=== PATIENT | male | born 1945 | race Caucasian/White ===

== ENCOUNTER → 2017-10-03 13:56 | Outpatient (CLI) | payer MEDICARE, OTHER, SELFPAY ==
[2017-10-03 14:09] LABS: Add Manual Diff / Slide Review NO; Basophils Percent Auto 0.5 % (0-2); Hematocrit 41.3 % (41-53); Hemoglobin 14.6 g/dL (13.5-17.5); Lymphocytes Percent Auto 19.7 % (25-40); Mean Corpuscular HGB Conc 35.4 % (30-36); Mean Corpuscular Hemoglobin 34.5 PG (26-34); Mean Corpuscular Volume 97.5 fL (80-100); Monocytes Percent Auto 2.7 % (3-14); Neutrophils Absolute Auto 7900 /uL (3000-5900); Neutrophils Percent Auto 77.1 % (50-75); Platelet Count 247 X10^3/uL (150-400); Red Blood Cell Count 4.23 X10^6/uL (4.5-5.9); Red Cell Distribution Width 13.9 % (11.6-14.8); White Blood Cell Count 10.3 X10^3/uL (4.5-11.0)
== END ==
PROVIDERS: Family Provider Family Medicine; PCP Family Medicine; Visit Provider Internal Medicine Hematology & Oncology
DX: D64.9 Anemia, unspecified (principal)
CPT/HCPCS: 36415; 85025

== ENCOUNTER → 2017-10-31 08:51 | Outpatient (CLI) | payer MEDICARE, OTHER, SELFPAY ==
[2017-10-31 09:08] LABS: Add Manual Diff / Slide Review NO; Basophils Percent Auto 1.4 % (0-2); Eosinophils Percent Auto 2.6 % (2-4); Hematocrit 46.5 % (41-53); Hemoglobin 16.4 g/dL (13.5-17.5); Lymphocytes Percent Auto 36.3 % (25-40); Mean Corpuscular HGB Conc 35.2 % (30-36); Mean Corpuscular Hemoglobin 33.6 PG (26-34); Mean Corpuscular Volume 95.6 fL (80-100); Monocytes Percent Auto 5.6 % (3-14); Neutrophils Absolute Auto 4900 /uL (3000-5900); Neutrophils Percent Auto 54.1 % (50-75); Platelet Count 255 X10^3/uL (150-400); Red Blood Cell Count 4.87 X10^6/uL (4.5-5.9); White Blood Cell Count 9.1 X10^3/uL (4.5-11.0)
== END ==
PROVIDERS: Family Provider Family Medicine; PCP Family Medicine; Visit Provider Nurse Practitioner Gerontology
DX: D59.1 Other autoimmune hemolytic anemias (principal)
CPT/HCPCS: 36415; 85025

== ENCOUNTER 2017-11-04 13:27 | Emergency (ER) | payer MEDICARE, OTHER, SELFPAY ==
[2017-11-04 13:42] VITALS: BP 147/70; PULSE 92; RESP 15; TEMP 36.8; O2SAT 92; BMI 35.4
--- NOTE | 2017-11-04 13:45 | ED_ITS ---
HPI - Wound/Laceration General Chief Complaint: Wound/Laceration Stated Complaint: SLICED RIGHT HAND OPEN Time Seen by Provider: 11/04/17 13:43 Source: patient Mode of arrival: ambulatory Limitations: no limitations History of Present Illness HPI narrative: 72-year-old male with chief complaint of superficial laceration to right thenar eminence. Patient was using an ax which slipped and cut him on his hand. He has full range of motion and denies numbness, tingling or weakness. His tetanus will need to be updated. He denies other injury Onset (ago): minute(s) Extremity Location: Right: hand Place: home Patient tetanus UTD: No Context: accidental Associated symptoms: none Related Data Home Medications Medication Instructions Recorded Confirmed cholecalciferol (vitamin D3) 2,000 unit PO QDAY #0 06/14/17 09/05/17 [Vitamin D3] colchicine 2 tab PO QAM #0 06/14/17 09/05/17 omeprazole 20 mg PO QDAY #0 07/11/17 09/05/17 folic acid 0.4 mg PO QDAY #0 07/13/17 09/05/17 folic acid 1 mg PO DAILY 07/31/17 07/31/17 prednisone 20 mg PO DAILY 07/31/17 10/16/17 Previous Rx's Medication Instructions Recorded cephalexin [Keflex] 500 mg PO QID 7 Days #28 cap 11/04/17 Allergies Allergy/AdvReac Type Severity Reaction Status Date / Time No Known Drug Allergies Allergy Verified 08/10/17 13:24 Review of Systems Review of Systems All systems reviewed & are unremarkable except as noted in HPI and below Constitutional Denies chills, Denies fever(s), Denies lethargy and Denies weakness Eyes Denies change in vision, Denies eye discharge, Denies irritation and Denies loss of vision ENT Ears, Nose, Mouth, and Throat: Denies change in voice, Denies neck pain and Denies sore throat Cardiovascular Denies chest pain, Denies irregular heart rhythm, Denies lightheadedness, Denies palpitations, Denies dyspnea, Denies dyspnea on exertion and Denies orthopnea Respiratory Denies cough, Denies dyspnea, Denies dyspnea on exertion and Denies wheezing Gastrointestinal Gastrointestinal: Denies abdominal pain, Denies change in bowel habits, Denies diarrhea, Denies nausea and Denies vomiting Genitourinary Denies hematuria, Denies flank pain, Denies urinary incontinence and Denies urinary urgency Musculoskeletal Denies neck pain Integumentary/Breasts Denies pruritus, Denies erythema, Denies rash and Denies wounds Neurologic Denies confusion, Denies loss of vision and Denies weakness Psychiatric Denies anxiety, Denies confusion, Denies depression, Denies homicidal ideation and Denies suicidal ideation Endocrine Denies palpitations Hematologic/Lymphatic Denies easy bruising Allergic/Immunologic Denies wheezing [facility] Social History Smoking Status: Former smoker Exam Narrative Exam Narrative: GEN: AOx3 and in mild distress EYES: Pupils are equal, round, and reactive to light and accommodation. Extraoccular muscles are intact bilaterally. There is no subconjunctival hemorrhage or exudate. CHEST: Lungs are clear to auscultation bilaterally and free of wheezes, rales, or rhonchi. Heart rate is regular rhythm, there are no murmurs, clicks, rubs, or gallops. There is no chest wall tenderness. ABD: Abdomen is soft and nontender. There is no guarding or rebound. Bowel sounds are normal in all 4 quadrants. There is no mass or organomegaly. EXT: 2cm superficial crescent shaped laceration on R thenar eminence. Visualized in bloodless field, no tendon, bone, arterial involvement. Full painless ROM of all extremities with no loss of sensation or strength. SKIN: Warm, pink, and dry. No erythema or rash Initial Vital Signs Initial Vital Signs: Vital Signs Temperature 98.3 F 11/04/17 13:42 Pulse Rate 92 H 11/04/17 13:42 Respiratory Rate 15 11/04/17 13:42 Blood Pressure 147/70 H 11/04/17 13:42 Pulse Oximetry 92 11/04/17 13:42 Procedures Laceration Repair Laceration 1: Site: hand Side (If applicable): right Size (cm): 2 Description: flap Depth: simple, single layer Local Anesthetic: lidocaine 1% and with bicarb Amount of anesthesia used (mL): 3 Pre-repair: wound explored and irrigated extensively Skin layer closed with: nylon Size (cm): 5-0 Number of sutures: 7 Technique: simple, interrupted Course Orders Ordered: Discontinued Medications Diphtheria/Tetanus/Acell Pertussis (Adacel) 0.5 ml IM .ONCE ONE Stop: 11/04/17 14:01 Vital Signs - 8 hr 11/04/17 13:42 Temperature 98.3 F Pulse Rate 92 H Respiratory Rate 15 Blood Pressure 147/70 H Pulse Oximetry 92 Discharge Plan Departure Patient Disposition: Home, Self-Care Clinical Impression: Hand laceration Instructions: DI for Laceration Repair Activity Restrictions/Additional Instructions: Please keep the wound clean and dry to the best of your ability. Please monitor for signs of infection such as redness to the skin or increasing pain. Have the sutures removed by your doctor in about 7 days. If you are unable to get into your doctor, we would be happy to remove the sutures in that same timeframe. Prescriptions: New cephalexin [Keflex] 500 mg capsule 500 mg PO QID 7 Days Qty: 28 RF: 0 No Action cholecalciferol (vitamin D3) [Vitamin D3] 1,000 UNIT tablet 2,000 unit PO QDAY Qty: 0 RF: 0 colchicine 0.6 MG capsule 2 tab PO QAM Qty: 0 RF: 0 omeprazole 20 MG capsule,delayed release(DR/EC) 20 mg PO QDAY Qty: 0 RF: 0 folic acid 0.4 MG tablet 0.4 mg PO QDAY Qty: 0 RF: 0 folic acid 1 mg Tablet 1 mg PO DAILY RF: 0 prednisone 20 mg Tablet 20 mg PO DAILY RF: 0
[2017-11-04] MEDS: TET,DIPH,PERTUSS(ACELL),VAC/PF 0.5 ML SYRINGE IM (14:18)
[2017-11-04 14:27] VITALS: BP 124/62; PULSE 90; RESP 18; O2SAT 96
== END 2017-11-04 14:49 | disposition home or self-care (01) ==
PROVIDERS: Emergency Provider Emergency Medicine; Family Provider Family Medicine; PCP Family Medicine
DX: S61.411A Laceration without foreign body of right hand, initial encounter (principal); W27.0XXA Contact with workbench tool, initial encounter
CPT/HCPCS: 12001; 90471; 99283; 90715

== ENCOUNTER → 2017-11-23 07:36 | Outpatient (CLI) | payer MEDICARE, OTHER, SELFPAY ==
--- NOTE | 2017-11-23 | DI.US.S_ITS ---
PROCEDURE: US ABD AORTA ANEURYSM SCREEN INDICATIONS: AAA SCREENING TECHNIQUE: Real time scanning was performed of the aorta and iliac arteries, with image documentation. COMPARISON: None. FINDINGS: Aorta: Proximal aortic diameter was obscured by overlying bowel gas. Mid-aorta measures 1.7 cm. Distal aortic diameter is 1.4 cm. Iliac arteries: Right common iliac artery measures 1.1 cm. Left common iliac artery measures 1.2 cm. IMPRESSION: No evidence of abdominal aortic aneurysm. Dictated by: Rojas Marr M.D. on 11/23/2017 at 8:31 Approved by: Rojas Marr M.D. on 11/23/2017 at 8:32
== END ==
PROVIDERS: PCP Family Medicine; Visit Provider Family Medicine
DX: Z13.6 Encounter for screening for cardiovascular disorders (principal)
CPT/HCPCS: 76706

== ENCOUNTER 2017-12-12 13:00 | Oncology outpatient (ONC) | payer MEDICARE, OTHER, SELFPAY ==
--- NOTE | 2017-07-28 14:01 | PC.NURSE ---
Addendum entered by Tamiko Sanchez R.N. 07/31/17 08:27: Dr Burton reviewed labs and confirmed pt has auto immune hemolytic anemia. Dr Cotton called in prednisone and folic acid RX. Wants pt to have twice weekly CBC's in [place] and to see him next with labs.Spoke with pt has the RX and is aware of labs order for [facility] [place] and appt for next week -orders given to schedulers. Original Note: Call from patient. Dr. Burton ordered additional lab results, which patient had drawn on 07/21. Patient is wondering if they are back yet, and what is the next step? Confirmed with patient that they are back. Results placed in Dr. Burton's box for review on Monday and patient is expecting a call from triage on Monday.
--- NOTE | 2017-08-09 08:52 | PC.NURSE ---
Lab results supposedly drawn yesterday in [place]. Checked scanned documents (outside reports) and nothing has been faxed back to us yet. If no results by midday, will call [facility] and request fax results.
[2017-08-10 13:17] LABS: Add Manual Diff / Slide Review NO; Basophils Percent Auto 0.1 % (0-2); Hematocrit 38.7 % (41-53); Hemoglobin 13.9 g/dL (13.5-17.5); Lymphocytes Percent Auto 9.3 % (25-40); Mean Corpuscular HGB Conc 35.8 % (30-36); Mean Corpuscular Hemoglobin 37.3 PG (26-34); Mean Corpuscular Volume 104.2 fL (80-100); Monocytes Percent Auto 0.8 % (3-14); Neutrophils Absolute Auto 8900 /uL (3000-5900); Neutrophils Percent Auto 89.8 % (50-75); Platelet Count 140 X10^3/uL (150-400); Red Blood Cell Count 3.72 X10^6/uL (4.5-5.9); Red Cell Distribution Width 15.2 % (11.6-14.8); White Blood Cell Count 9.9 X10^3/uL (4.5-11.0)
[2017-08-10 13:19] VITALS: BP 128/72; PULSE 71; RESP 18; TEMP 36.4; O2SAT 97
[2017-08-10 13:25] LABS: Reticulocyte Count, Percent 6.5 % (0.87-2.60)
--- NOTE | 2017-08-10 13:49 | P.PNONC_ITS ---
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 Subsequently initiated on high-dose prednisone @ 100 mg per day History of Present Illness History Of Present Illness: 08/10/17 13:46 Elias returns today for routine surveillance. He currently remains on 100 mg of prednisone daily. He feels significantly better, compared with his presentation several weeks ago. He is having rather significant insomnia issues from the high-dose steroids. He denies any upset stomach. Home Medications and Allergies Home Medications Medication Instructions Recorded Confirmed Type cholecalciferol (vitamin D3) 2,000 unit PO QDAY #0 06/14/17 History [Vitamin D3] colchicine 2 tab PO PRN #0 06/14/17 History omeprazole 20 mg PO QDAY #0 07/11/17 History cyanocobalamin (vitamin B-12) 5,000 mcg PO Q DAY #0 07/13/17 History ferrous sulfate [Iron (ferrous 325 mg PO QDAY #0 07/13/17 History sulfate)] folic acid 0.4 mg PO QDAY #0 07/13/17 History folic acid 1 mg PO DAILY 07/31/17 07/31/17 History prednisone 100 mg PO DAILY 07/31/17 07/31/17 History Allergies Allergy/AdvReac Type Severity Reaction Status Date / Time No Known Drug Allergies Allergy Verified 08/10/17 13:24 Exam Vital Signs: Vital Signs - 24 hr 08/10/17 13:19 Temperature 97.5 F L Pulse Rate 71 Respiratory Rate 18 Blood Pressure 128/72 H Pulse Oximetry 97 Exam: Blood pressure of 128/72. Temperature 97.5?. Pulse rate 71. O2 saturation on room air was 97%. Weight 204 lb. The oropharynx today was clear. I did not see any oral thrush. Both lungs were clear to auscultation and percussion. No pathologic lymphadenopathy was noted today in the neck, chin, supraclavicular or axillary areas. His abdomen was benign. His heart sounds were fine. There was no distal edema. Results - Labs 08/10/17 13:00 Laboratory Last Values WBC 9.9 X10^3/uL (4.5-11.0) 08/10/17 13:00 RBC 3.72 X10^6/uL (4.5-5.9) L 08/10/17 13:00 Hgb 13.9 g/dL (13.5-17.5) 08/10/17 13:00 Hct 38.7 % (41-53) L 08/10/17 13:00 MCV 104.2 fL (80-100) H 08/10/17 13:00 MCH 37.3 PG (26-34) H 08/10/17 13:00 MCHC 35.8 % (30-36) 08/10/17 13:00 RDW 15.2 % (11.6-14.8) H 08/10/17 13:00 Plt Count 140 X10^3/uL (150-400) L 08/10/17 13:00 Neut % (Auto) 89.8 % (50-75) H 08/10/17 13:00 Lymph % (Auto) 9.3 % (25-40) L 08/10/17 13:00 [place] % (Auto) 0.8 % (3-14) L 08/10/17 13:00 Eos % (Auto) 0.0 % (2-4) L 08/10/17 13:00 Baso % (Auto) 0.1 % (0-2) 08/10/17 13:00 Neut # (Auto) 8900 /uL (9448-0829) H 08/10/17 13:00 Percent Retic 6.5 % (0.87-2.60) H 08/10/17 13:00 Impression Elias is having an excellent response to his high-dose prednisone. Effective today, I will decrease his dosage to 60 mg per day. We will continue that dose for 1 week, and then reassess another hemoglobin level. If his hemoglobin level remains stable, then he will be tapered down to 20 mg per day, over the next 2 weeks. Again, if his hemoglobin level remains stable, he will continue prednisone at 20 mg per day for another 4 weeks, with reassessment for further tapering at that point in time. I will plan to see him back in the clinic on September 05.
[2017-08-10 15:45] LABS: Lactate Dehydrogenase 2350 U/L (313-618)
[2017-08-14 12:00] LABS: Haptoglobin < 15 mg/dL (43-212)
[2017-09-05 11:30] VITALS: BP 125/78; PULSE 86; RESP 15; TEMP 36.7; O2SAT 98
--- NOTE | 2017-09-05 12:13 | P.PNONC_ITS ---
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 Subsequently initiated on high-dose prednisone @ 100 mg per day. Current prednisone dosage @ 20 mg per day. 09/05/17 12:07 History of Present Illness History Of Present Illness: 09/05/17 12:08 Abelino returns today for routine surveillance. He has been on his current prednisone dosage for the past 10 days. The steroids are certainly interfering with his sleep cycles. His recent appetite has been strong. Both he and his made note today that there has been an equivocal change in his voice over the last couple of months. He describes it as a gravelly. He apparently is an old smoker (previously smoking 3 packs of cigarettes per day). He denies any pain in his throat or neck area. Home Medications and Allergies Home Medications Medication Instructions Recorded Confirmed Type cholecalciferol (vitamin D3) 2,000 unit PO QDAY #0 06/14/17 09/05/17 History [Vitamin D3] colchicine 2 tab PO QAM #0 06/14/17 09/05/17 History omeprazole 20 mg PO QDAY #0 07/11/17 09/05/17 History cyanocobalamin (vitamin B-12) 5,000 mcg PO Q DAY #0 07/13/17 09/05/17 History ferrous sulfate [Iron (ferrous 325 mg PO QDAY #0 07/13/17 09/05/17 History sulfate)] folic acid 0.4 mg PO QDAY #0 07/13/17 09/05/17 History folic acid 1 mg PO DAILY 07/31/17 07/31/17 History prednisone 100 mg PO DAILY 07/31/17 07/31/17 History Allergies Allergy/AdvReac Type Severity Reaction Status Date / Time No Known Drug Allergies Allergy Verified 08/10/17 13:24 Exam Vital Signs: Vital Signs - 24 hr 09/05/17 11:30 Temperature 98.0 F Pulse Rate 86 Respiratory Rate 15 Blood Pressure 125/78 H Pulse Oximetry 98 Exam: Blood pressure 125/78. Temperature 98.0?. Pulse rate 86. O2 saturation on room air was 98%. Weight 204 lb. His voice was indeed somewhat gravelly. The oropharynx was otherwise clear. Both lungs were clear to auscultation and percussion. No pathologic lymphadenopathy was noted today in the neck, chin, supraclavicular or axillary areas. His abdomen was benign. His heart sounds were fine. There was no lower extremity fluid retention. Results - Labs 08/10/17 13:00 Laboratory Last Values WBC 9.9 X10^3/uL (4.5-11.0) 08/10/17 13:00 RBC 3.72 X10^6/uL (4.5-5.9) L 08/10/17 13:00 Hgb 13.9 g/dL (13.5-17.5) 08/10/17 13:00 Hct 38.7 % (41-53) L 08/10/17 13:00 MCV 104.2 fL (80-100) H 08/10/17 13:00 MCH 37.3 PG (26-34) H 08/10/17 13:00 MCHC 35.8 % (30-36) 08/10/17 13:00 RDW 15.2 % (11.6-14.8) H 08/10/17 13:00 Plt Count 140 X10^3/uL (150-400) L 08/10/17 13:00 Neut % (Auto) 89.8 % (50-75) H 08/10/17 13:00 Lymph % (Auto) 9.3 % (25-40) L 08/10/17 13:00 [place] % (Auto) 0.8 % (3-14) L 08/10/17 13:00 Eos % (Auto) 0.0 % (2-4) L 08/10/17 13:00 Baso % (Auto) 0.1 % (0-2) 08/10/17 13:00 Neut # (Auto) 8900 /uL (5652-5140) H 08/10/17 13:00 Percent Retic 6.5 % (0.87-2.60) H 08/10/17 13:00 Haptoglobin < 15 mg/dL (43-212) L 08/10/17 13:00 Lactate Dehydrogenase 2350 U/L (313-618) H 08/10/17 13:00 Impression ABELINO looks good today. I am very happy with his current hemoglobin level. I will plan to continue his prednisone at 20 mg per day for at least 2 additional weeks. We will reassess at that time. Because of the recent subtle change in his voice, I will request a formal ENT consultation.
[2017-09-19 10:05] LABS: Add Manual Diff / Slide Review NO; Basophils Percent Auto 0.9 % (0-2); Eosinophils Percent Auto 0.4 % (2-4); Hematocrit 44.5 % (41-53); Hemoglobin 15.5 g/dL (13.5-17.5); Lymphocytes Percent Auto 13.7 % (25-40); Mean Corpuscular HGB Conc 34.9 % (30-36); Mean Corpuscular Hemoglobin 34.4 PG (26-34); Mean Corpuscular Volume 98.6 fL (80-100); Monocytes Percent Auto 4.1 % (3-14); Neutrophils Absolute Auto 10100 /uL (3000-5900); Neutrophils Percent Auto 80.9 % (50-75); Platelet Count 308 X10^3/uL (150-400); Red Blood Cell Count 4.51 X10^6/uL (4.5-5.9); Red Cell Distribution Width 13.6 % (11.6-14.8); White Blood Cell Count 12.4 X10^3/uL (4.5-11.0)
--- NOTE | 2017-09-19 10:35 | ONC.GEN.PN ---
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 Subsequently initiated on high-dose prednisone @ 100 mg per day. Current prednisone dosage @ 20 mg per day. 09/05/17 12:07 History of Present Illness History Of Present Illness: 09/19/17 10:36 Elias returns today for routine surveillance. He remains on prednisone @ 20 mg daily. He reports adequate strength and stamina. He denies any recent issues with gastritis. He continues to note persistent sleep impairment. He generally gets in about 4 hr of sleep per night. He is due to see Dr. Lambert on September 28 for triage regarding his recent hoarseness. Home Medications and Allergies Home Medications Medication Instructions Recorded Confirmed Type cholecalciferol (vitamin D3) 2,000 unit PO QDAY #0 06/14/17 09/05/17 History [Vitamin D3] colchicine 2 tab PO QAM #0 06/14/17 09/05/17 History omeprazole 20 mg PO QDAY #0 07/11/17 09/05/17 History cyanocobalamin (vitamin B-12) 5,000 mcg PO Q DAY #0 07/13/17 09/05/17 History ferrous sulfate [Iron (ferrous 325 mg PO QDAY #0 07/13/17 09/05/17 History sulfate)] folic acid 0.4 mg PO QDAY #0 07/13/17 09/05/17 History folic acid 1 mg PO DAILY 07/31/17 07/31/17 History prednisone 100 mg PO DAILY 07/31/17 07/31/17 History Allergies Allergy/AdvReac Type Severity Reaction Status Date / Time No Known Drug Allergies Allergy Verified 08/10/17 13:24 Exam Exam: Blood pressure 140 2/86. Temperature 98.6?. Pulse rate 86. O2 saturation on room air was 96%. Weight 207 lb. There was no oral thrush. Both lungs were clear to auscultation and percussion 10. No pathologic lymphadenopathy was noted in the neck, chin, supraclavicular or axillary areas. Heart sounds were fine. His abdomen was soft and nontender in all 4 quadrants. There was no fluid retention in either pretibial area. Results - Labs 09/19/17 09:56 Laboratory Last Values WBC 12.4 X10^3/uL (4.5-11.0) H 09/19/17 09:56 RBC 4.51 X10^6/uL (4.5-5.9) 09/19/17 09:56 Hgb 15.5 g/dL (13.5-17.5) 09/19/17 09:56 Hct 44.5 % (41-53) 09/19/17 09:56 MCV 98.6 fL (80-100) 09/19/17 09:56 MCH 34.4 PG (26-34) H 09/19/17 09:56 MCHC 34.9 % (30-36) 09/19/17 09:56 RDW 13.6 % (11.6-14.8) 09/19/17 09:56 Plt Count 308 X10^3/uL (150-400) 09/19/17 09:56 Neut % (Auto) 80.9 % (50-75) H 09/19/17 09:56 Lymph % (Auto) 13.7 % (25-40) L 09/19/17 09:56 [place] % (Auto) 4.1 % (3-14) 09/19/17 09:56 Eos % (Auto) 0.4 % (2-4) L 09/19/17 09:56 Baso % (Auto) 0.9 % (0-2) 09/19/17 09:56 Neut # (Auto) 27817 /uL (5491-1164) H 09/19/17 09:56 Percent Retic 6.5 % (0.87-2.60) H 08/10/17 13:00 Haptoglobin < 15 mg/dL (43-212) L 08/10/17 13:00 Lactate Dehydrogenase 2350 U/L (313-618) H 08/10/17 13:00 Impression Elias continues to have a very gratifying response to his prednisone. He has now completed 1 month of therapy with prednisone at 20 mg per day. He remains in remission. Beginning today, his prednisone dosage will be changed to 20 mg/daily alternating with 10 mg/daily. I will recheck his CBC in 2 and 4 weeks. Due to my upcoming long term, he will see our nurse practitioner in 4 weeks. If he remains in remission in 4 weeks, the prednisone dosage can be changed to 20 mg every other day. If remission persists thereafter, he can then be cut down to 10 mg per day on alternate days, with further tapering thereafter as appropriate. Once he is completely off of prednisone, his counts should be followed on a monthly basis, to confirm that he remains in remission. I wished him well.
--- NOTE | 2017-09-19 10:44 | P.PNONC_ITS ---
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 Subsequently initiated on high-dose prednisone @ 100 mg per day. Current prednisone dosage @ 20 mg per day. 09/05/17 12:07 History of Present Illness History Of Present Illness: 09/19/17 10:36 Elias returns today for routine surveillance. He remains on prednisone @ 20 mg daily. He reports adequate strength and stamina. He denies any recent issues with gastritis. He continues to note persistent sleep impairment. He generally gets in about 4 hr of sleep per night. He is due to see Dr. Lambert on September 28 for triage regarding his recent hoarseness. Home Medications and Allergies Home Medications Medication Instructions Recorded Confirmed Type cholecalciferol (vitamin D3) 2,000 unit PO QDAY #0 06/14/17 09/05/17 History [Vitamin D3] colchicine 2 tab PO QAM #0 06/14/17 09/05/17 History omeprazole 20 mg PO QDAY #0 07/11/17 09/05/17 History cyanocobalamin (vitamin B-12) 5,000 mcg PO Q DAY #0 07/13/17 09/05/17 History ferrous sulfate [Iron (ferrous 325 mg PO QDAY #0 07/13/17 09/05/17 History sulfate)] folic acid 0.4 mg PO QDAY #0 07/13/17 09/05/17 History folic acid 1 mg PO DAILY 07/31/17 07/31/17 History prednisone 100 mg PO DAILY 07/31/17 07/31/17 History Allergies Allergy/AdvReac Type Severity Reaction Status Date / Time No Known Drug Allergies Allergy Verified 08/10/17 13:24 Exam Exam: Blood pressure 140 2/86. Temperature 98.6?. Pulse rate 86. O2 saturation on room air was 96%. Weight 207 lb. There was no oral thrush. Both lungs were clear to auscultation and percussion 10. No pathologic lymphadenopathy was noted in the neck, chin, supraclavicular or axillary areas. Heart sounds were fine. His abdomen was soft and nontender in all 4 quadrants. There was no fluid retention in either pretibial area. Results - Labs 09/19/17 09:56 Laboratory Last Values WBC 12.4 X10^3/uL (4.5-11.0) H 09/19/17 09:56 RBC 4.51 X10^6/uL (4.5-5.9) 09/19/17 09:56 Hgb 15.5 g/dL (13.5-17.5) 09/19/17 09:56 Hct 44.5 % (41-53) 09/19/17 09:56 MCV 98.6 fL (80-100) 09/19/17 09:56 MCH 34.4 PG (26-34) H 09/19/17 09:56 MCHC 34.9 % (30-36) 09/19/17 09:56 RDW 13.6 % (11.6-14.8) 09/19/17 09:56 Plt Count 308 X10^3/uL (150-400) 09/19/17 09:56 Neut % (Auto) 80.9 % (50-75) H 09/19/17 09:56 Lymph % (Auto) 13.7 % (25-40) L 09/19/17 09:56 [place] % (Auto) 4.1 % (3-14) 09/19/17 09:56 Eos % (Auto) 0.4 % (2-4) L 09/19/17 09:56 Baso % (Auto) 0.9 % (0-2) 09/19/17 09:56 Neut # (Auto) 15467 /uL (2545-6424) H 09/19/17 09:56 Percent Retic 6.5 % (0.87-2.60) H 08/10/17 13:00 Haptoglobin < 15 mg/dL (43-212) L 08/10/17 13:00 Lactate Dehydrogenase 2350 U/L (313-618) H 08/10/17 13:00 Impression Elias continues to have a very gratifying response to his prednisone. He has now completed 1 month of therapy with prednisone at 20 mg per day. He remains in remission. Beginning today, his prednisone dosage will be changed to 20 mg/ daily alternating with 10 mg/daily. I will recheck his CBC in 2 and 4 weeks. Due to my upcoming half-way, he will see our nurse practitioner in 4 weeks. If he remains in remission in 4 weeks, the prednisone dosage can be changed to 20 mg every other day. If remission persists thereafter, he can then be cut down to 10 mg per day on alternate days, with further tapering thereafter as appropriate. Once he is completely off of prednisone, his counts should be followed on a monthly basis, to confirm that he remains in remission. I wished him well.
[2017-09-19 10:49] VITALS: BP 142/86; PULSE 86; RESP 15; TEMP 37; O2SAT 96
--- NOTE | 2017-10-16 08:12 | ONC.APRN.PN ---
Assessment and Plan (1) Hemolytic anemia Current visit: No Status: Acute 10/16/17 08:15 Elias continues to have a very gratifying response to his prednisone. He has now completed 1 month of therapy with prednisone at 20/10 mg alternating days. He remains with stable blood counts specifically hemoglobin 15.9 hematocrit 45.8 platelets 266,000. Beginning today, his prednisone dosage will be changed to 20 mg QOD, we will DC the alternating dose of 10mg per Dr Burton. I will continue to recheck his CBC in 2 and 4 weeks, provider visit at 4 weeks as well. If remission persists thereafter, he can then be cut down to 10 mg per day on alternate days, with further tapering thereafter as appropriate. Once he is completely off of prednisone, his counts should be followed on a monthly basis, to confirm that he remains in remission. I wished him well. 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 Subsequently initiated on high-dose prednisone @ 100 mg per day. Current prednisone dosage @ 20/10mg alternating days. Elias returns today for routine surveillance. He remains on prednisone @ 20/10mg alternating daily. He reports adequate strength and stamina. He denies any recent issues with gastritis. He continues to note persistent sleep impairment. He generally gets in about 4 hr of sleep per night. He was evaluated by ENT Dr Lambert September 28 for persistent cough/hoarseness. per pt report Dr Lambert recommended sleep study, everything was ok. he did undergo laryngoscope while in the office. He does report feeling hungry and eating more although weight is stable. - Patient Self-Reported Symptoms SR Constitution: Fatigue/Malaise, Weight loss/gain SR Cardiovascular issues: Dizzy/lightheaded SR Genitourinary issues: Frequent urination SR Neuro issues: Lightheaded/dizzy, Tremors or shaking Results - Labs 10/16/17 11:37 Laboratory Last Values WBC 12.4 X10^3/uL (4.5-11.0) H 09/19/17 09:56 RBC 4.51 X10^6/uL (4.5-5.9) 09/19/17 09:56 Hgb 15.5 g/dL (13.5-17.5) 09/19/17 09:56 Hct 44.5 % (41-53) 09/19/17 09:56 MCV 98.6 fL (80-100) 09/19/17 09:56 MCH 34.4 PG (26-34) H 09/19/17 09:56 MCHC 34.9 % (30-36) 09/19/17 09:56 RDW 13.6 % (11.6-14.8) 09/19/17 09:56 Plt Count 308 X10^3/uL (150-400) 09/19/17 09:56 Neut % (Auto) 80.9 % (50-75) H 09/19/17 09:56 Lymph % (Auto) 13.7 % (25-40) L 09/19/17 09:56 [place] % (Auto) 4.1 % (3-14) 09/19/17 09:56 Eos % (Auto) 0.4 % (2-4) L 09/19/17 09:56 Baso % (Auto) 0.9 % (0-2) 09/19/17 09:56 Neut # (Auto) 23449 /uL (3721-2054) H 09/19/17 09:56 Percent Retic 6.5 % (0.87-2.60) H 08/10/17 13:00 Haptoglobin < 15 mg/dL (43-212) L 08/10/17 13:00 Lactate Dehydrogenase 2350 U/L (313-618) H 08/10/17 13:00 - Imaging Additional studies: Procedures Bursectomy (12/24/14) Other local excision or destruction of lesion of joint, shoulder (12/24/14) Home Medications and Allergies Home Medications Medication Instructions Recorded Confirmed Type cholecalciferol (vitamin D3) 2,000 unit PO QDAY #0 06/14/17 09/05/17 History [Vitamin D3] colchicine 2 tab PO QAM #0 06/14/17 09/05/17 History omeprazole 20 mg PO QDAY #0 07/11/17 09/05/17 History folic acid 0.4 mg PO QDAY #0 07/13/17 09/05/17 History folic acid 1 mg PO DAILY 07/31/17 07/31/17 History prednisone 20 mg PO DAILY 07/31/17 10/16/17 History Allergies Allergy/AdvReac Type Severity Reaction Status Date / Time No Known Drug Allergies Allergy Verified 08/10/17 13:24 Exam Vital signs: Last Vital Signs Temp 98.6 F 09/19/17 10:49 Pulse 86 09/19/17 10:49 Resp 15 09/19/17 10:49 BP 142/86 H 09/19/17 10:49 Pulse Ox 96 09/19/17 10:49 Narrative: non toxic appearing - Constitutional positive no acute distress, positive obese - Routine HEENT Exam ENT: Present: mucous membranes moist, oropharynx clear - Routine Neck Exam Present: supple. Absent: lymphadenopathy - Routine Respiratory Exam Present: Clear to auscultation bilaterally - Routine Cardiovascular Exam Present: RRR - Routine Abdominal Exam Present: soft, normoactive bowel sounds. Absent: tenderness, distended - Routine Extremities Exam Absent: edema, calf tenderness - Routine Skin Exam Present: intact, normal turgor. Absent: petechiae, rash - Routine Neurological Exam Present: alert, oriented X3 - Routine Psychiatric Exam Present: normal affect
[2017-10-16 11:47] LABS: Add Manual Diff / Slide Review NO; Basophils Percent Auto 0.7 % (0-2); Eosinophils Percent Auto 0.2 % (2-4); Hematocrit 45.8 % (41-53); Hemoglobin 15.9 g/dL (13.5-17.5); Lymphocytes Percent Auto 20.1 % (25-40); Mean Corpuscular HGB Conc 34.7 % (30-36); Monocytes Percent Auto 2.6 % (3-14); Neutrophils Absolute Auto 9800 /uL (3000-5900); Neutrophils Percent Auto 76.4 % (50-75); Platelet Count 266 X10^3/uL (150-400); Red Blood Cell Count 4.67 X10^6/uL (4.5-5.9); White Blood Cell Count 12.9 X10^3/uL (4.5-11.0)
[2017-10-16 12:41] VITALS: BP 131/70; PULSE 81; RESP 18; TEMP 36.4; O2SAT 98
[2017-11-14 12:30] LABS: Add Manual Diff / Slide Review NO; Basophils Percent Auto 0.7 % (0-2); Eosinophils Percent Auto 0.2 % (2-4); Hematocrit 42.4 % (41-53); Lymphocytes Percent Auto 15.6 % (25-40); Mean Corpuscular HGB Conc 35.4 % (30-36); Mean Corpuscular Hemoglobin 33.2 PG (26-34); Mean Corpuscular Volume 93.7 fL (80-100); Monocytes Percent Auto 1.9 % (3-14); Neutrophils Absolute Auto 8800 /uL (3000-5900); Neutrophils Percent Auto 81.6 % (50-75); Platelet Count 255 X10^3/uL (150-400); Red Blood Cell Count 4.53 X10^6/uL (4.5-5.9); Red Cell Distribution Width 14.2 % (11.6-14.8); White Blood Cell Count 10.8 X10^3/uL (4.5-11.0)
[2017-11-14 12:32] VITALS: BP 122/61; PULSE 84; RESP 18; TEMP 36.3; O2SAT 95
--- NOTE | 2017-11-14 12:40 | ONC.APRN.PN ---
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 Subsequently initiated on high-dose prednisone @ 100 mg per day. Current prednisone dosage @ 20 QOD. CBC demonstrates a completely normal hemoglobin and hematocrit. Current dose of prednisone is 20 mg every other day, we will titrate the patient down once again to 10 mg every other day. He has been coming in for every 2 week CBC. We will discontinue this I will ask the patient return in 1 months time for CBC, CMP, LDH. I have asked him to make appointment with 1 of our new oncologist. 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 Subsequently initiated on high-dose prednisone @ 100 mg per day. Current prednisone dosage @ 20 QOD. Elias returns today for routine surveillance. He remains on prednisone @ 20mg QOD, titrating down from initial dose of 100mg daily . He reports adequate strength and stamina. He denies any issues with gastritis. He continues to note persistent sleep impairment although improving as we titrate dose. He was evaluated by ENT Dr Lambert September 28 for persistent cough/hoarseness. per pt report Dr Lambert recommended sleep study, everything was ok. he did undergo laryngoscope while in the office. He does report feeling hungry and eating more, weight is up. - Patient Self-Reported Symptoms SR Constitution: Fatigue/Malaise, Weight loss/gain SR Cardiovascular issues: Dizzy/lightheaded SR Genitourinary issues: Frequent urination SR Neuro issues: Lightheaded/dizzy, Tremors or shaking Results - Labs Laboratory Last Values WBC 10.8 X10^3/uL (4.5-11.0) 11/14/17 12:21 RBC 4.53 X10^6/uL (4.5-5.9) 11/14/17 12:21 Hgb 15.0 g/dL (13.5-17.5) 11/14/17 12:21 Hct 42.4 % (41-53) 11/14/17 12:21 MCV 93.7 fL (80-100) 11/14/17 12:21 MCH 33.2 PG (26-34) 11/14/17 12:21 MCHC 35.4 % (30-36) 11/14/17 12:21 RDW 14.2 % (11.6-14.8) 11/14/17 12:21 Plt Count 255 X10^3/uL (150-400) 11/14/17 12:21 Neut % (Auto) 81.6 % (50-75) H 11/14/17 12:21 Lymph % (Auto) 15.6 % (25-40) L 11/14/17 12:21 Dolores % (Auto) 1.9 % (3-14) L 11/14/17 12:21 Eos % (Auto) 0.2 % (2-4) L 11/14/17 12:21 Baso % (Auto) 0.7 % (0-2) 11/14/17 12:21 Neut # (Auto) 8800 /uL (1780-3412) H 11/14/17 12:21 Percent Retic 6.5 % (0.87-2.60) H 08/10/17 13:00 Haptoglobin < 15 mg/dL (43-212) L 08/10/17 13:00 Lactate Dehydrogenase 2350 U/L (313-618) H 08/10/17 13:00 - Imaging Additional studies: Procedures Bursectomy (12/24/14) Other local excision or destruction of lesion of joint, shoulder (12/24/14) Home Medications and Allergies Home Medications Medication Instructions Recorded Confirmed Type cholecalciferol (vitamin D3) 2,000 unit PO QDAY #0 06/14/17 09/05/17 History [Vitamin D3] colchicine 2 tab PO QAM #0 06/14/17 09/05/17 History omeprazole 20 mg PO QDAY #0 07/11/17 09/05/17 History folic acid 1 mg PO DAILY 07/31/17 07/31/17 History prednisone 20 mg PO Q OTHER DAY 07/31/17 11/14/17 History Allergies Allergy/AdvReac Type Severity Reaction Status Date / Time No Known Drug Allergies Allergy Verified 08/10/17 13:24 Exam Vital signs: Last Vital Signs Temp 97.3 F L 11/14/17 12:32 Pulse 84 11/14/17 12:32 Resp 18 11/14/17 12:32 BP 122/61 H 11/14/17 12:32 Pulse Ox 95 11/14/17 12:32 - Constitutional positive no acute distress, positive obese - Routine HEENT Exam Eye: Present: conjunctivae pink. Absent: conjunctival icterus, scleral injection ENT: Present: mucous membranes moist, oropharynx clear - Routine Neck Exam Present: supple. Absent: lymphadenopathy - Routine Respiratory Exam Present: Clear to auscultation bilaterally. Absent: rales, rhonchi, wheezes - Routine Cardiovascular Exam Present: RRR, S1, S2. Absent: murmur, gallop, rubs, JVD - Routine Abdominal Exam Present: soft, normoactive bowel sounds. Absent: tenderness, distended, organomegaly, mass - Routine Extremities Exam Absent: edema, calf tenderness - Routine Skin Exam Present: intact, normal turgor. Absent: petechiae, rash - Routine Neurological Exam Present: alert, oriented X3 - Routine Psychiatric Exam Present: normal affect
--- NOTE | 2017-11-14 12:44 | P.PNONC_ITS ---
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 Subsequently initiated on high-dose prednisone @ 100 mg per day. Current prednisone dosage @ 20 QOD. CBC demonstrates a completely normal hemoglobin and hematocrit. Current dose of prednisone is 20 mg every other day, we will titrate the patient down once again to 10 mg every other day. He has been coming in for every 2 week CBC. We will discontinue this I will ask the patient return in 1 months time for CBC , CMP, LDH. I have asked him to make appointment with 1 of our new oncologist. 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 Subsequently initiated on high-dose prednisone @ 100 mg per day. Current prednisone dosage @ 20 QOD. Elias returns today for routine surveillance. He remains on prednisone @ 20mg QOD, titrating down from initial dose of 100mg daily . He reports adequate strength and stamina. He denies any issues with gastritis. He continues to note persistent sleep impairment although improving as we titrate dose. He was evaluated by ENT Dr Lambert September 28 for persistent cough/ hoarseness. per pt report Dr Lambert recommended sleep study, everything was ok . he did undergo laryngoscope while in the office. He does report feeling hungry and eating more, weight is up. - Patient Self-Reported Symptoms SR Constitution: Fatigue/Malaise, Weight loss/gain SR Cardiovascular issues: Dizzy/lightheaded SR Genitourinary issues: Frequent urination SR Neuro issues: Lightheaded/dizzy, Tremors or shaking Results - Labs Laboratory Last Values WBC 10.8 X10^3/uL (4.5-11.0) 11/14/17 12:21 RBC 4.53 X10^6/uL (4.5-5.9) 11/14/17 12:21 Hgb 15.0 g/dL (13.5-17.5) 11/14/17 12:21 Hct 42.4 % (41-53) 11/14/17 12:21 MCV 93.7 fL (80-100) 11/14/17 12:21 MCH 33.2 PG (26-34) 11/14/17 12:21 MCHC 35.4 % (30-36) 11/14/17 12:21 RDW 14.2 % (11.6-14.8) 11/14/17 12:21 Plt Count 255 X10^3/uL (150-400) 11/14/17 12:21 Neut % (Auto) 81.6 % (50-75) H 11/14/17 12:21 Lymph % (Auto) 15.6 % (25-40) L 11/14/17 12:21 Sunflower % (Auto) 1.9 % (3-14) L 11/14/17 12:21 Eos % (Auto) 0.2 % (2-4) L 11/14/17 12:21 Baso % (Auto) 0.7 % (0-2) 11/14/17 12:21 Neut # (Auto) 8800 /uL (6217-9657) H 11/14/17 12:21 Percent Retic 6.5 % (0.87-2.60) H 08/10/17 13:00 Haptoglobin < 15 mg/dL (43-212) L 08/10/17 13:00 Lactate Dehydrogenase 2350 U/L (313-618) H 08/10/17 13:00 - Imaging Additional studies: Procedures Bursectomy (12/24/14) Other local excision or destruction of lesion of joint, shoulder (12/24/14) Home Medications and Allergies Home Medications Medication Instructions Recorded Confirmed Type cholecalciferol (vitamin D3) 2,000 unit PO QDAY #0 06/14/17 09/05/17 History [Vitamin D3] colchicine 2 tab PO QAM #0 06/14/17 09/05/17 History omeprazole 20 mg PO QDAY #0 07/11/17 09/05/17 History folic acid 1 mg PO DAILY 07/31/17 07/31/17 History prednisone 20 mg PO Q OTHER DAY 07/31/17 11/14/17 History Allergies Allergy/AdvReac Type Severity Reaction Status Date / Time No Known Drug Allergies Allergy Verified 08/10/17 13:24 Exam Vital signs: Last Vital Signs Temp 97.3 F L 11/14/17 12:32 Pulse 84 11/14/17 12:32 Resp 18 11/14/17 12:32 BP 122/61 H 11/14/17 12:32 Pulse Ox 95 11/14/17 12:32 - Constitutional positive no acute distress, positive obese - Routine HEENT Exam Eye: Present: conjunctivae pink. Absent: conjunctival icterus, scleral injection ENT: Present: mucous membranes moist, oropharynx clear - Routine Neck Exam Present: supple. Absent: lymphadenopathy - Routine Respiratory Exam Present: Clear to auscultation bilaterally. Absent: rales, rhonchi, wheezes - Routine Cardiovascular Exam Present: RRR, S1, S2. Absent: murmur, gallop, rubs, JVD - Routine Abdominal Exam Present: soft, normoactive bowel sounds. Absent: tenderness, distended, organomegaly, mass - Routine Extremities Exam Absent: edema, calf tenderness - Routine Skin Exam Present: intact, normal turgor. Absent: petechiae, rash - Routine Neurological Exam Present: alert, oriented X3 - Routine Psychiatric Exam Present: normal affect
--- NOTE | 2017-11-20 12:59 | PC.NURSE ---
Addendum entered by Nathalie Mata R.N. 11/22/17 10:01: Refill request for folic acid called to [facility] per OBSTETRICS TECHNICIAN request Original Note: Pt requesting refill on Rx of folic acid 1 mg tabs. [facility]. He has enough to last 4 days.
[2017-12-12 12:44] LABS: Add Manual Diff / Slide Review NO; Basophils Percent Auto 0.7 % (0-2); Eosinophils Percent Auto 0.1 % (2-4); Hematocrit 46.3 % (41-53); Lymphocytes Percent Auto 17.1 % (25-40); Mean Corpuscular HGB Conc 34.6 % (30-36); Mean Corpuscular Hemoglobin 32.8 PG (26-34); Mean Corpuscular Volume 94.8 fL (80-100); Monocytes Percent Auto 3.2 % (3-14); Neutrophils Absolute Auto 8600 /uL (3000-5900); Neutrophils Percent Auto 78.9 % (50-75); Platelet Count 253 X10^3/uL (150-400); Red Blood Cell Count 4.89 X10^6/uL (4.5-5.9); Red Cell Distribution Width 14.6 % (11.6-14.8); White Blood Cell Count 10.9 X10^3/uL (4.5-11.0)
[2017-12-12 12:57] LABS: Alanine Aminotransferase 41 IU/L (21-72); Albumin 4.5 g/dL (3.5-5.0); Albumin Globulin Ratio 1.6 (1.0-2.8); Alkaline Phosphatase 54 U/L (38-126); Aspartate Aminotransferase 38 IU/L (17-59); BUN Creatinine Ratio 21.1 (6-22); Bilirubin Total 0.7 mg/dL (0.2-1.3); Blood Urea Nitrogen 19 mg/dL (9-20); Calcium 9.6 mg/dL (8.4-10.2); Carbon Dioxide 25 mmol/L (22-32); Chloride 104 mmol/L (98-107); Estimated Glomerular Filt Rate > 60.0 mL/min (>60); Globulin 2.8 g/dL (1.7-4.1); Glucose 149 mg/dL (80-110); HEMOLYSIS < 15 (0-50); Lactate Dehydrogenase 502 U/L (313-618); Potassium 4.5 mmol/L (3.4-5.1); Sodium 142 mmol/L (137-145); Total Protein 7.3 g/dL (6.3-8.2)
[2017-12-12 13:02] VITALS: BP 111/86; PULSE 87; RESP 17; TEMP 36.6; O2SAT 94
--- NOTE | 2017-12-12 13:17 | ONC.PN ---
PN -Subjective Interval history: Diagnosis: Autoimmune hemolytic anemia Previous treatment: Prednisone initially 100 mg a day, now on 10 mg every other day. Interval history: Petar is a 72 year old male being seen in the clinic for follow-up of autoimmune hemolytic anemia. He was diagnosed last winter or spring with a hemoglobin of about 7. He felt quite weak. He had fatigue as well as dyspnea on exertion. He had a 2 unit red cell transfusion which did not seem to make him feel much better. He started on prednisone at 100 mg daily. He had rapid improvement in his counts and has been slowly tapering his prednisone dose. He is currently on 10 mg every other day. Reports that he has had some thickening of his saliva and change in his taste. He has a good appetite. He denies any nausea or vomiting. No fevers chills or sweats. No shortness of breath or cough. He is not having any difficulty with the sleeping. No GI complaints. He otherwise feels well. - Patient Self-Reported Symptoms SR Constitution: Fatigue/Malaise, Weight loss/gain SR Cardiovascular issues: Dizzy/lightheaded SR Genitourinary issues: Frequent urination SR Neuro issues: Lightheaded/dizzy, Tremors or shaking Home Medications and Allergies Home Medications Medication Instructions Recorded Confirmed Type cholecalciferol (vitamin D3) 2,000 unit PO QDAY #0 06/14/17 12/12/17 History [Vitamin D3] colchicine 2 tab PO QAM #0 06/14/17 12/12/17 History omeprazole 20 mg PO QDAY #0 07/11/17 12/12/17 History folic acid 1 mg PO DAILY 07/31/17 12/12/17 History prednisone 10 mg PO Q OTHER DAY 07/31/17 12/12/17 History Allergies Allergy/AdvReac Type Severity Reaction Status Date / Time No Known Drug Allergies Allergy Verified 08/10/17 13:24 Exam Vital signs: Last Vital Signs Temp 98 F 12/12/17 13:02 Pulse 87 12/12/17 13:02 Resp 17 12/12/17 13:02 BP 111/86 12/12/17 13:02 Pulse Ox 94 12/12/17 13:02 - Constitutional positive no acute distress, positive obese - Routine HEENT Exam Head: Present: normocephalic, atraumatic Eye: Present: EOMI, PERRL. Absent: conjunctival icterus, scleral injection ENT: Present: mucous membranes moist, oropharynx clear - Routine Neck Exam Present: supple. Absent: lymphadenopathy, thyromegaly - Routine Respiratory Exam Present: Clear to auscultation bilaterally. Absent: rales, wheezes - Routine Cardiovascular Exam Present: RRR, S1, S2. Absent: murmur - Routine Abdominal Exam Present: soft, normoactive bowel sounds. Absent: tenderness, organomegaly, mass - Routine Extremities Exam Absent: cyanosis, clubbing, edema - Routine Back/Spine Exam Back/Spine: Absent: paraspinal tenderness, vertebral tenderness - Routine Skin Exam Present: intact. Absent: petechiae, rash - Routine Neurological Exam Present: alert, oriented X3 - Routine Psychiatric Exam Present: normal affect, normal thought process Results - Labs Laboratory Last Values WBC 10.9 X10^3/uL (4.5-11.0) 12/12/17 12:35 RBC 4.89 X10^6/uL (4.5-5.9) 12/12/17 12:35 Hgb 16.0 g/dL (13.5-17.5) 12/12/17 12:35 Hct 46.3 % (41-53) 12/12/17 12:35 MCV 94.8 fL (80-100) 12/12/17 12:35 MCH 32.8 PG (26-34) 12/12/17 12:35 MCHC 34.6 % (30-36) 12/12/17 12:35 RDW 14.6 % (11.6-14.8) 12/12/17 12:35 Plt Count 253 X10^3/uL (150-400) 12/12/17 12:35 Neut % (Auto) 78.9 % (50-75) H 12/12/17 12:35 Lymph % (Auto) 17.1 % (25-40) L 12/12/17 12:35 Hendry % (Auto) 3.2 % (3-14) 12/12/17 12:35 Eos % (Auto) 0.1 % (2-4) L 12/12/17 12:35 Baso % (Auto) 0.7 % (0-2) 12/12/17 12:35 Neut # (Auto) 8600 /uL (3440-3600) H 12/12/17 12:35 Percent Retic 6.5 % (0.87-2.60) H 08/10/17 13:00 Haptoglobin < 15 mg/dL (43-212) L 08/10/17 13:00 Sodium 142 mmol/L (137-145) 12/12/17 12:35 Potassium 4.5 mmol/L (3.4-5.1) 12/12/17 12:35 Chloride 104 mmol/L (98-107) 12/12/17 12:35 Carbon Dioxide 25 mmol/L (22-32) 12/12/17 12:35 BUN 19 mg/dL (9-20) 12/12/17 12:35 Creatinine 0.90 mg/dL (0.66-1.25) 12/12/17 12:35 Estimated GFR > 60.0 mL/min (>60) 12/12/17 12:35 BUN/Creatinine Ratio 21.1 (6-22) 12/12/17 12:35 Glucose 149 mg/dL (80-110) H 12/12/17 12:35 Calcium 9.6 mg/dL (8.4-10.2) 12/12/17 12:35 Total Bilirubin 0.7 mg/dL (0.2-1.3) 12/12/17 12:35 AST 38 IU/L (17-59) 12/12/17 12:35 ALT 41 IU/L (21-72) 12/12/17 12:35 Alkaline Phosphatase 54 U/L (38-126) 12/12/17 12:35 Lactate Dehydrogenase 502 U/L (313-618) 12/12/17 12:35 Total Protein 7.3 g/dL (6.3-8.2) 12/12/17 12:35 Albumin 4.5 g/dL (3.5-5.0) 12/12/17 12:35 Globulin 2.8 g/dL (1.7-4.1) 12/12/17 12:35 Albumin/Globulin Ratio 1.6 (1.0-2.8) 12/12/17 12:35 - Imaging Additional studies: Procedures Bursectomy (12/24/14) Other local excision or destruction of lesion of joint, shoulder (12/24/14) Assessment and Plan (1) Hemolytic anemia Problem details: 72-year-old man with the history of autoimmune hemolytic anemia. He has been in remission with a normal CBC. I think at this point, he can stop his prednisone. We will plan on checking labs monthly. He will return to clinic in about 3 months for follow-up. I did ask him to call if he developed increasing fatigue dizziness or dyspnea on exertion. Current visit: No Status: Acute
== END 2017-12-25 12:53 ==
PROVIDERS: Nurse Practitioner Gerontology; Family Provider Family Medicine; PCP Family Medicine; Visit Provider Internal Medicine Hematology & Oncology
DX: D59.1 Other autoimmune hemolytic anemias (principal)
CPT/HCPCS: 36415; 80053; 83010; 83615; 85025; 85045; 99213; 99214

== ENCOUNTER → 2018-01-09 10:29 | Outpatient (CLI) | payer MEDICARE, OTHER, SELFPAY ==
[2018-01-09 10:51] LABS: Add Manual Diff / Slide Review NO; Basophils Percent Auto 1.3 % (0-2); Eosinophils Percent Auto 3.2 % (2-4); Hematocrit 46.2 % (41-53); Hemoglobin 15.8 g/dL (13.5-17.5); Lymphocytes Percent Auto 38.5 % (25-40); Mean Corpuscular HGB Conc 34.3 % (30-36); Mean Corpuscular Hemoglobin 32.1 PG (26-34); Mean Corpuscular Volume 93.7 fL (80-100); Monocytes Percent Auto 7.4 % (3-14); Neutrophils Absolute Auto 4700 /uL (3000-5900); Neutrophils Percent Auto 49.6 % (50-75); Platelet Count 296 X10^3/uL (150-400); Red Blood Cell Count 4.93 X10^6/uL (4.5-5.9); Red Cell Distribution Width 14.1 % (11.6-14.8); White Blood Cell Count 9.5 X10^3/uL (4.5-11.0)
[2018-01-09 10:57] LABS: Reticulocyte Count, Percent 1.4 % (0.87-2.60)
[2018-01-09 10:59] LABS: Lactate Dehydrogenase 467 U/L (313-618)
== END ==
PROVIDERS: PCP Family Medicine
DX: D59.1 Other autoimmune hemolytic anemias (principal)
CPT/HCPCS: 36415; 83615; 85025; 85045

== ENCOUNTER → 2018-02-06 10:15 | Outpatient (CLI) | payer MEDICARE, OTHER, SELFPAY ==
[2018-02-06 10:33] LABS: Add Manual Diff / Slide Review NO; Hematocrit 45.4 % (41-53); Hemoglobin 15.6 g/dL (13.5-17.5); Lymphocytes Percent Auto 34.5 % (25-40); Mean Corpuscular HGB Conc 34.4 % (30-36); Monocytes Percent Auto 6.5 % (3-14); Neutrophils Absolute Auto 4300 /uL (3000-5900); Platelet Count 232 X10^3/uL (150-400); Red Blood Cell Count 4.88 X10^6/uL (4.5-5.9); Red Cell Distribution Width 14.1 % (11.6-14.8); White Blood Cell Count 7.8 X10^3/uL (4.5-11.0)
[2018-02-06 10:39] LABS: Reticulocyte Count, Percent 1.4 % (0.87-2.60)
[2018-02-06 10:53] LABS: Lactate Dehydrogenase 476 U/L (313-618)
== END ==
PROVIDERS: PCP Family Medicine
DX: D59.1 Other autoimmune hemolytic anemias (principal)
CPT/HCPCS: 36415; 83615; 85025; 85045

== ENCOUNTER → 2018-03-06 10:36 | Outpatient (CLI) | payer MEDICARE, OTHER, SELFPAY ==
[2018-03-06 10:51] LABS: Add Manual Diff / Slide Review NO; Eosinophils Percent Auto 3.3 % (2-4); Hematocrit 45.7 % (41-53); Hemoglobin 15.9 g/dL (13.5-17.5); Lymphocytes Percent Auto 39.2 % (25-40); Mean Corpuscular HGB Conc 34.7 % (30-36); Mean Corpuscular Hemoglobin 32.1 PG (26-34); Mean Corpuscular Volume 92.5 fL (80-100); Monocytes Percent Auto 7.8 % (3-14); Neutrophils Absolute Auto 3900 /uL (3000-5900); Neutrophils Percent Auto 48.7 % (50-75); Platelet Count 248 X10^3/uL (150-400); Red Blood Cell Count 4.94 X10^6/uL (4.5-5.9); White Blood Cell Count 8.1 X10^3/uL (4.5-11.0)
[2018-03-06 10:57] LABS: Reticulocyte Count, Percent 1.4 % (0.87-2.60)
[2018-03-06 11:02] LABS: Lactate Dehydrogenase 467 U/L (313-618)
== END ==
PROVIDERS: PCP Family Medicine
DX: D58.9 Hereditary hemolytic anemia, unspecified (principal)
CPT/HCPCS: 36415; 83615; 85025; 85045

== ENCOUNTER → 2018-12-13 08:09 | Outpatient (CLI) | payer MEDICARE, OTHER, SELFPAY ==
[2018-12-13 08:21] LABS: Add Manual Diff / Slide Review NO; Basophils Absolute Auto 100 /uL (0-100); Basophils Percent Auto 0.6 % (0-2); Eosinophils Absolute Auto 100 /uL (0-450); Eosinophils Percent Auto 1.6 % (2-4); Hemoglobin 16.2 g/dL (13.5-17.5); Lymphocytes Absolute Auto 3600 /uL (1100-4500); Lymphocytes Percent Auto 41.4 % (25-40); Mean Corpuscular HGB Conc 34.3 % (30-36); Mean Corpuscular Hemoglobin 32.2 PG (26-34); Mean Corpuscular Volume 93.7 fL (80-100); Monocytes Absolute Auto 600 /uL (0-900); Neutrophils Absolute Auto 4300 /uL (1500-7000); Neutrophils Percent Auto 49.4 % (50-75); Platelet Count 229 X10^3/uL (150-400); Red Blood Cell Count 5.02 X10^6/uL (4.5-5.9); Red Cell Distribution Width 14.8 % (11.6-14.8); White Blood Cell Count 8.7 X10^3/uL (4.5-11.0)
== END ==
PROVIDERS: PCP Student in an Organized Health Care Education/Training Program
DX: D58.9 Hereditary hemolytic anemia, unspecified (principal)
CPT/HCPCS: 36415; 85025

== ENCOUNTER → 2019-01-31 10:26 | Outpatient (CLI) | payer MEDICARE, OTHER, SELFPAY ==
--- NOTE | 2019-01-31 | DI.RAD.S_ITS ---
PROCEDURE: XR HIP W PEL IF DONE LT MIN 4V INDICATIONS: Pelvic pain/Bilateral hip pain. TECHNIQUE: AP pelvis with lateral view(s) of the left and right hip(s). COMPARISON: None. FINDINGS: Bones: No fractures or dislocations. Pelvic ring appears intact. No suspicious bony lesions. Mild bilaterally symmetric hip joint degeneration. Scattered degenerative subchondral sclerosis and spurring. Lower lumbar spondylosis Soft tissues: The visualized bowel gas pattern is normal. No suspicious soft tissue calcifications. IMPRESSION: Mild bilateral hip degeneration. Lower lumbar spondylosis. Dictated by: Samuel Aguilar M.D. on 01/31/2019 at 12:55 Approved by: Samuel Aguilar M.D. on 01/31/2019 at 12:57
== END ==
PROVIDERS: PCP Student in an Organized Health Care Education/Training Program; Visit Provider Student in an Organized Health Care Education/Training Program
DX: R10.2 Pelvic and perineal pain (principal); M25.552 Pain in left hip; M25.551 Pain in right hip; M16.0 Bilateral primary osteoarthritis of hip; M47.816 Spondylosis without myelopathy or radiculopathy, lumbar region
CPT/HCPCS: 73522

== ENCOUNTER → 2019-09-18 11:59 | Outpatient (CLI) | payer OTHER, SELFPAY ==
--- NOTE | 2019-09-18 | DI.MRI.S_ITS ---
PROCEDURE: MR LUMBAR SPINE WO CON INDICATIONS: Spinal stenosis, lumbar region TECHNIQUE: Noncontrast sagittal T1 spin echo and T2 fast echo, sagittal STIR, axial T1 and T2 fast spin echo through the lumbar spine. In cases with scoliosis, additional coronal T2 fast spin echo may be performed. COMPARISON: None. FINDINGS: Image quality: Excellent. Alignment and Curvature: Mild levoconvex scoliotic curvature is noted. There is minimal retrolisthesis seen at T12-L1 and L1-L2 and mild retrolisthesis seen at L2-L3. Minimal anterolisthesis is seen at L4-L5. No pars defects are seen. Bone Marrow: Marrow is of normal overall signal. Scattered foci are seen, which are hyperintense on T1-weighted and T2-weighted imaging, which are most consistent with benign vertebral body hemangiomas. No acute vertebral body compression fractures. Spinal Cord: Conus medullaris terminates at the L1 level. Visualized cord demonstrates normal signal and size. Paraspinous Soft Tissues: No paravertebral masses. T12-L1: Mild loss of disc height is seen. Loss of disc signal is seen. Bridging endplate osteophytes are seen. Moderate generalized disc bulge is seen. Mild to moderate left-sided and mild right-sided neural foraminal narrowing can be seen. Mild central canal narrowing is seen. L1-L2: Moderate loss of disc height is seen. Loss of disc signal is seen. Reactive marrow endplate changes are seen, which demonstrate mixed T1 weighted and T2-weighted signal, and are attributed to a combination of edema and fatty metaplasia (Modic type I and Modic type II changes). Moderate to prominent disc bulge is seen, which is eccentric to the right. Mild facet moderate bilateral neural foraminal narrowing is seen, right worse than left. Mild to moderate central canal narrowing is seen. L2-L3: At least moderate loss of disc height and disc signal can be seen. Reactive marrow endplate changes are seen, which demonstrate mixed T1 weighted and T2-weighted signal, and are attributed to a combination of edema and fatty metaplasia (Modic type I and Modic type II changes). At least moderate disc bulge is seen. Protruding components are seen in both lateral recesses. Moderate to severe bilateral neural foraminal narrowing is seen, right worse than left. There is a degree of compression seen upon the exiting nerve roots. Moderate to severe central canal narrowing is seen. L3-L4: The disc height is well-preserved. Loss of disc signal is seen at this level. Moderate disc bulge is seen, which is eccentric to the right. At least moderate facet hypertrophy is seen. There is at least moderate bilateral neural foraminal narrowing seen, left worse than right. There is a mild degree of compression seen on the exiting left L3 nerve root. At least moderate central canal narrowing is seen. L4-L5: The disc height is well-preserved. Loss of disc signal is seen at this level. Mild to moderate disc bulge is seen, which is eccentric to the right. Moderate to prominent facet hypertrophy is seen. There is at least moderate bilateral neural foraminal narrowing seen, left worse than right. Moderate to severe central canal narrowing is seen. L5-S1: The disc height is well-preserved. Loss of disc signal is seen at this level. Mild to moderate disc bulge is seen. Prominent right-sided and moderate left-sided facet hypertrophy is seen. There is mild to moderate right-sided and at least moderate left-sided neural foraminal narrowing seen. No significant central canal narrowing is seen. IMPRESSION: Multiple levels of lumbar spine degenerative change are seen, which are overall most prominent at L2-L3. Mild levoconvex curvature is seen. Dictated by: David Marks M.D. on 09/18/2019 at 14:57 Approved by: David Marks M.D. on 09/18/2019 at 15:02
== END ==
PROVIDERS: PCP Student in an Organized Health Care Education/Training Program; Referring Provider Physical Medicine & Rehabilitation Pain Medicine; Visit Provider Physical Medicine & Rehabilitation Pain Medicine
DX: M48.062 Spinal stenosis, lumbar region with neurogenic claudication (principal); M47.816 Spondylosis without myelopathy or radiculopathy, lumbar region; M41.86 Other forms of scoliosis, lumbar region
CPT/HCPCS: 72148

== ENCOUNTER → 2020-03-24 09:34 | Outpatient (CLI) | payer MEDICARE, OTHER, SELFPAY ==
[2020-03-24 10:30] LABS: Add Manual Diff / Slide Review NO; Basophils Absolute Auto 100 /uL (0-100); Basophils Percent Auto 0.9 % (0-2); Eosinophils Absolute Auto 200 /uL (0-450); Eosinophils Percent Auto 2.2 % (2-4); Hematocrit 46.4 % (41-53); Hemoglobin 15.6 g/dL (13.5-17.5); Lymphocytes Absolute Auto 2400 /uL (1100-4500); Lymphocytes Percent Auto 30.7 % (25-40); Mean Corpuscular HGB Conc 33.7 % (30-36); Mean Corpuscular Hemoglobin 31.7 PG (26-34); Mean Corpuscular Volume 94.1 fL (80-100); Monocytes Absolute Auto 700 /uL (0-900); Monocytes Percent Auto 9.1 % (3-14); Neutrophils Absolute Auto 4500 /uL (1500-7000); Neutrophils Percent Auto 57.1 % (50-75); Platelet Count 229 X10^3/uL (150-400); Red Blood Cell Count 4.93 X10^6/uL (4.5-5.9); Red Cell Distribution Width 14.5 % (11.6-14.8); White Blood Cell Count 7.9 X10^3/uL (4.5-11.0)
[2020-03-24 10:44] LABS: Reticulocyte Count, Percent 1.4 % (0.87-2.60)
[2020-03-24 11:39] LABS: Alanine Aminotransferase 35 IU/L (<50); Albumin 4.1 g/dL (3.5-5.0); Albumin Globulin Ratio 1.3 (1.0-2.8); Alkaline Phosphatase 65 U/L (38-126); Aspartate Aminotransferase 35 IU/L (17-59); BUN Creatinine Ratio 17.6 (6-22); Bilirubin Total 0.4 mg/dL (0.2-1.3); Blood Urea Nitrogen 19 mg/dL (9-20); Calcium 9.5 mg/dL (8.4-10.2); Carbon Dioxide 29 mmol/L (22-32); Chloride 104 mmol/L (98-107); Estimated Glomerular Filt Rate > 60.0 mL/min (>60); Globulin 3.1 g/dL (1.7-4.1); Glucose 108 mg/dL (80-110); HEMOLYSIS < 15 (0-50); Potassium 4.2 mmol/L (3.4-5.1); Sodium 137 mmol/L (137-145); Total Protein 7.2 g/dL (6.3-8.2)
== END ==
PROVIDERS: PCP Student in an Organized Health Care Education/Training Program; Referring Provider Internal Medicine; Visit Provider Internal Medicine
DX: D58.9 Hereditary hemolytic anemia, unspecified (principal)
CPT/HCPCS: 36415; 80053; 85025; 85045

== ENCOUNTER → 2020-05-21 11:36 | Outpatient (CLI) | payer MEDICARE, OTHER, SELFPAY ==
--- NOTE | 2020-05-21 | DI.MRI.S_ITS ---
PROCEDURE: MR LUMBAR SPINE WO CON INDICATIONS: Pain in right hip,Connective tissue and disc steno TECHNIQUE: Noncontrast sagittal T1 spin echo and T2 fast echo, coronal T2, sagittal STIR, axial T1 and T2 fast spin echo through the lumbar spine. COMPARISON: [facility], MR, MR LUMBAR SPINE WO CON, 09/18/2019, 12:49. [facility], CR, XR LUMBAR SPINE WITH OLBIQUES PLUS FLEXION EXTENSION, 08/12/2019, 11:24. FINDINGS: Image quality: Excellent. Alignment and Curvature: 5 lumbar type vertebral bodies are present by plain film. Mild leftward curvature of the upper lumbar spine. Mild, grade 1 retrolisthesis of L1 on L2, L2 on L3, and L3 on L4. Bone Marrow: Marrow is of normal overall signal. No acute vertebral body compression fractures. Severe reactive signal within the endplates adjacent to the L1-L2 and L2-L3 intervertebral discs. Moderate reactive signal within the endplates adjacent to the T10-T11 and L3-L4 intervertebral discs. Mild reactive signal within the endplates adjacent to the T11-T12, T12-L1, and L4-L5 intervertebral discs. Spinal Cord: Conus medullaris terminates at the upper L2 level. Visualized cord demonstrates normal signal and size. Paraspinous Soft Tissues: No paravertebral masses. T12-L1: Moderate disc height loss and desiccation. Mild diffuse disc bulge. Mild facet and ligamentum flavum hypertrophy. Mild epidural lipomatosis. Mild canal stenosis. Mild bilateral foraminal stenosis. No change. L1-L2: Moderate disc height loss and desiccation. Mild diffuse disc bulge with superimposed central/right paracentral protrusion. Mild facet and ligamentum flavum hypertrophy. Mild epidural lipomatosis. Moderate canal stenosis. Mild bilateral foraminal stenosis. No change. L2-L3: Severe disc height loss and desiccation. Moderate diffuse disc bulge/osteophyte. Mild facet and ligamentum flavum hypertrophy. Mild epidural lipomatosis. Severe canal stenosis. Mild right and moderate left foraminal stenosis. No change. L3-L4: Moderate disc desiccation. Mild disc height loss and diffuse disc bulge. Mild facet and ligamentum flavum hypertrophy. Mild epidural lipomatosis. Increased, severe canal stenosis. No change in mild bilateral foraminal stenosis. L4-L5: Moderate disc desiccation. Mild diffuse disc bulge. Moderate facet and ligamentum flavum hypertrophy. Severe canal stenosis. Moderate bilateral foraminal stenosis. No change. L5-S1: Mild disc desiccation and diffuse disc bulge. Moderate epidural lipomatosis. Moderate bilateral facet hypertrophy. Moderate canal stenosis. Moderate bilateral foraminal stenosis. No change. IMPRESSION: 1. Multilevel degenerative disc and facet disease, as well as ligamentum flavum hypertrophy and epidural lipomatosis. 2. Multilevel canal stenoses, worst at L2-L3 , L3-L4, and L4-L5, where there are severe canal stenoses. 3. Multilevel foraminal stenoses, worst at L2-L3, L4-L5, and L5-S1, where there are moderate foraminal stenoses. Dictated by: Esther Rodriges M.D. on 05/21/2020 at 14:07 Approved by: Esther Rodriges M.D. on 05/21/2020 at 14:13
--- NOTE | 2020-05-21 | DI.MRI.S_ITS ---
PROCEDURE: MR HIP RT WO CON INDICATIONS: Pain in right hip,Connective tissue and disc steno TECHNIQUE: Noncontrast coronal T1 spin echo and STIR through the bony pelvis. Coronal and axial T2 fast spin echo with fat saturation, sagittal T1 spin echo, and oblique axial T2 fast spin echo with fat saturation through the hip. COMPARISON: None. FINDINGS: Image quality: Excellent. Bones and joints: Mild T2 signal elevation within the marrow adjacent to the pubic symphysis. Bone marrow of the pelvic ring and proximal femurs show normal signal throughout. Periarticular osteophyte formation at the bilateral hip joints. No intraosseous lesions or fractures. No avascular necrosis of the femoral heads. The visualized lower lumbar spine appears normally aligned. Tendons and ligaments: There is moderate fluid signal intensity at the femoral insertion site of the right gluteus medius and minimus tendons, indicating partial thickness tearing. There is moderate grade partial thickness tearing of the left gluteus medius and minimus tendons at the femoral insertion sites as well. The nearby proximal iliotibial band also appears intact. The iliopsoas tendon appears intact, without adjacent bursal fluid collections or evidence for impingement syndrome. The origin of the hamstring tendon is intact at the ischial tuberosity, as well as the associated sacrotuberous ligament. The straight and reflected heads of the rectus femoris muscle origin appear intact, as well as the conjoint tendon. The ligamentum teres appears intact where visualized. Labrum and cartilage: High T2 signal intensity within the bilateral superolateral and anterosuperior hip labrum. Cartilage surface of the femoral head appears of normal thickness. The alpha angle of the femur is within normal limits at less than 55 degrees. Soft tissues: Visualized muscles demonstrate normal bulk and internal signal. Quadratus femoris muscle demonstrates no internal edema to suggest ischiofemoral impingement. The proximal sciatic neurovascular bundle appears normal adjacent to the hamstring tendons. No free pelvic fluid. Bladder wall thickness is normal. Genitourinary structures and bowel loops appear normal where visualized. IMPRESSION: 1. Bilateral partial-thickness gluteus medius and minimus tendon tears at the femoral insertion sites. 2. Bilateral hip osteoarthritis associated with labral tearing. 3. Mild osteitis pubis. 4. No fracture or osseous lesion. Dictated by: Esther Rodriges M.D. on 05/21/2020 at 13:59 Approved by: Esther Rodriges M.D. on 05/21/2020 at 14:01
--- NOTE | 2020-05-21 | DI.RAD.S_ITS ---
PROCEDURE: XR EYE FOREIGN BODY LT INDICATIONS: Pain in right hip,Connective tissue and disc steno TECHNIQUE: A single view of the orbits was acquired. COMPARISON: [facility], MR, MR LUMBAR SPINE WO CON, 09/18/2019, 12:49. MR, SHOULDER WITHOUT CONTRAST, 06/03/2014, 19:48. FINDINGS: Soft tissues: There are tiny punctate and subtle densities projecting in both orbits, which are indeterminate. Bones: Bony structures appear unremarkable. Visualized sinuses appear clear. IMPRESSION: Punctate densities projecting in both orbits, the exact etiology is unknown. Of note, the patient has had prior MRIs in this facility, the most recent from 09/18/19. Recommend clinical correlation to recent history of metal work subsequent to the 09/18/19 MRI. Dictated by: Samuel Aguilar M.D. on 05/21/2020 at 12:51 Approved by: Samuel Aguilar M.D. on 05/21/2020 at 12:59
== END ==
PROVIDERS: PCP Student in an Organized Health Care Education/Training Program; Referring Provider Physical Medicine & Rehabilitation Pain Medicine; Visit Provider Physical Medicine & Rehabilitation Pain Medicine
DX: M51.36 Other intervertebral disc degeneration, lumbar region (principal); M48.061 Spinal stenosis, lumbar region without neurogenic claudication; M48.07 Spinal stenosis, lumbosacral region; M25.551 Pain in right hip; M99.73 Connective tissue and disc stenosis of intervertebral foramina of lumbar region; M16.0 Bilateral primary osteoarthritis of hip; M86.9 Osteomyelitis, unspecified; S39.012A Strain of muscle, fascia and tendon of lower back, initial encounter; T15.92XA Foreign body on external eye, part unspecified, left eye, initial encounter
CPT/HCPCS: 70030; 72148; 73721

== ENCOUNTER 2020-07-10 11:37 | Emergency (ER) | payer MEDICARE, OTHER, SELFPAY ==
[2020-07-10 12:13] VITALS: BP 143/82; PULSE 82; RESP 16; TEMP 36.6; O2SAT 97; BMI 41.6
--- NOTE | 2020-07-10 12:41 | DI.RAD.S_ITS ---
PROCEDURE: XR CHEST 1V INDICATIONS: suspected sepsis TECHNIQUE: One view of the chest was acquired. COMPARISON: [facility], , CHEST 2 VIEW, 07/13/2017, 15:31. FINDINGS: Surgical changes and devices: Cervical fusion hardware Lungs and pleura: Lungs are clear. No pleural effusions or pneumothorax. Mediastinum: Mediastinal contours appear normal. Heart size is normal. Bones and chest wall: No suspicious bony lesions. Overlying soft tissues appear unremarkable. IMPRESSION: No evidence acute pulmonary process. Dictated by: Elmo Delarosa M.D. on 07/10/2020 at 13:02 Approved by: Elmo Delarosa M.D. on 07/10/2020 at 13:03
[2020-07-10 12:59] VITALS: PULSE 75; RESP 20; O2SAT 98
[2020-07-10 13:00] VITALS: BP 143/89; PULSE 75; RESP 24; O2SAT 98
[2020-07-10 13:08] LABS: Add Manual Diff / Slide Review NO; Basophils Absolute Auto 100 /uL (0-100); Basophils Percent Auto 0.9 % (0-2); Eosinophils Absolute Auto 100 /uL (0-450); Eosinophils Percent Auto 1.8 % (2-4); Hematocrit 47.1 % (41-53); Hemoglobin 15.8 g/dL (13.5-17.5); Lymphocytes Absolute Auto 2100 /uL (1100-4500); Lymphocytes Percent Auto 25.7 % (25-40); Mean Corpuscular HGB Conc 33.7 % (30-36); Mean Corpuscular Hemoglobin 31.8 PG (26-34); Mean Corpuscular Volume 94.4 fL (80-100); Monocytes Absolute Auto 600 /uL (0-900); Monocytes Percent Auto 6.8 % (3-14); Neutrophils Absolute Auto 5300 /uL (1500-7000); Neutrophils Percent Auto 64.8 % (50-75); Platelet Count 207 X10^3/uL (150-400); Red Blood Cell Count 4.99 X10^6/uL (4.5-5.9); Red Cell Distribution Width 14.9 % (11.6-14.8); White Blood Cell Count 8.2 X10^3/uL (4.5-11.0)
[2020-07-10 13:15] LABS: INR 1.1 (0.9-1.3); Prothrombin Time 12.3 SECONDS (10.1-12.7)
[2020-07-10 13:18] LABS: PTT Partial Thromboplastin Tim 36 SECONDS (26.4-36.2)
[2020-07-10 13:21] LABS: Alanine Aminotransferase 77 IU/L (<50); Albumin 4.5 g/dL (3.5-5.0); Albumin Globulin Ratio 1.5 (1.0-2.8); Alkaline Phosphatase 72 U/L (38-126); Aspartate Aminotransferase 55 IU/L (17-59); BUN Creatinine Ratio 18.4 (6-22); Bilirubin Total 0.8 mg/dL (0.2-1.3); Blood Urea Nitrogen 19 mg/dL (9-20); Calcium 10.2 mg/dL (8.4-10.2); Carbon Dioxide 27 mmol/L (22-32); Chloride 100 mmol/L (98-107); Estimated Glomerular Filt Rate > 60.0 mL/min (>60); Globulin 3.1 g/dL (1.7-4.1); Glucose 105 mg/dL (80-110); HEMOLYSIS < 15 (0-50); Lactate (Lactic Acid) 1.2 mmol/L (0.7-2.1); Lipase 45 U/L (23-300); Potassium 4.1 mmol/L (3.4-5.1); Sodium 137 mmol/L (137-145); Total Protein 7.6 g/dL (6.3-8.2)
[2020-07-10 13:30] VITALS: BP 136/74; PULSE 67; RESP 18; O2SAT 97
[2020-07-10 13:38] LABS: Procalcitonin 0.06 ng/mL (<0.5)
[2020-07-10] MEDS: SODIUM CHLORIDE 0.9% 1,000 ML 1000 ML IV (13:45)
--- NOTE | 2020-07-10 14:19 | ED.RECABL ---
HPI - Recheck/Abnormal Lab/Rx General Chief Complaint: Recheck/Abnormal Lab/Rx Stated Complaint: Elevated white blood cells Time Seen by Provider: 07/10/20 12:39 Source: patient Mode of arrival: Ambulatory Limitations: no limitations History of Present Illness HPI narrative: Patient is a 74-year-old male with history of doubt complaining of right knee pain for month and a half. He is followed the [place] had blood work done a couple days ago found to have leukocytosis of 13.7 recommended he come to the ER for rule out septic joint. Patient does not have any redness he is able to ambulate on his knee his back pain is not any worse than what it has been in his been afebrile. He denies any chest pain or worsening cough, had a cough for over a year he has no painful or frequent urination. He said he is about 90% because is knee is bothering him. He actually has been treated for a gout flare, who was treated with colchicine prednisone and now he is on indomethacin. MD complaint: abnormal lab Related Data Home Medications Medication Instructions Recorded Confirmed cholecalciferol (vitamin D3) 2,000 unit PO QDAY #0 06/14/17 09/25/19 [Vitamin D3] colchicine 2 tab PO PRN PRN #0 06/14/17 09/25/19 allopurinol 300 mg PRN PRN 12/25/18 09/25/19 atorvastatin 10 mg PO DAILY 12/25/18 09/25/19 carbidopa-levodopa 2 tab DAILY 12/25/18 09/25/19 magnesium 1 tab DAILY 12/25/18 09/25/19 duloxetine 60 mg PO DAILY 09/25/19 09/25/19 pantoprazole 40 mg PO BID 09/25/19 09/25/19 Allergies Allergy/AdvReac Type Severity Reaction Status Date / Time No Known Drug Allergies Allergy Verified 08/10/17 13:24 Review of Systems Review of Systems ROS Unobtainable: All systems reviewed & are unremarkable except as noted in HPI and below Constitutional Constitutional: Denies chills, Denies fever(s), Denies frequent falls, Denies lethargy and Denies weakness Cardiovascular Cardiovascular: Denies chest pain, Denies syncope, Denies irregular heart rhythm, Denies lightheadedness, Denies palpitations, Denies dyspnea, Denies dyspnea on exertion and Denies orthopnea Respiratory Respiratory: Denies cough, Denies dyspnea, Denies dyspnea on exertion and Denies wheezing Gastrointestinal Gastrointestinal: Denies abdominal pain, Denies change in bowel habits, Denies diarrhea, Denies nausea and Denies vomiting Musculoskeletal Musculoskeletal: Reports system reviewed and no additional complaints, except as documented Integumentary/Breasts Skin/Breast: Denies pruritus, Denies erythema, Denies rash and Denies wounds Neurologic Neurologic: Denies syncope, Denies frequent falls and Denies weakness Endocrine Endocrine: Denies palpitations Allergic/Immunologic Allergic/Immunologic: Denies wheezing Patient History Social History Smoking Status: Former smoker Smoking Status: Former smoker Substance Use Type: does not use Exam Initial Vital Signs Initial Vital Signs: Vital Signs Temperature 98 F 07/10/20 12:13 Pulse Rate 82 07/10/20 12:13 Respiratory Rate 16 07/10/20 12:13 Blood Pressure 143/82 H 07/10/20 12:13 Pulse Oximetry 97 07/10/20 12:13 GENERAL: Alert pleasant 76-year-old male and in no acute distress. HEENT: Head atraumatic,EOMI, pupils reactive, face symmetric, moist mucous membranes CARDIOVASCULAR: Regular rate and rhythm without murmurs, rubs or gallops. RESPIRATORY: Breath sounds equal bilaterally, no wheezes rales or rhonchi. ABDOMEN: Soft, nontender. Normoactive bowel sounds all 4 quadrants. No guarding or rebound. EXTREMITIES: Normal range of motion, no clubbing or edema. Neurovascularly intact Right knee has some very mild swelling. Able to flex and extend is stable knee not erythematous not warm no pain to palpation, but is slightly more swollen on the lateral NEUROLOGICAL: Alert and oriented x4.Normal gait and speech. Cranial nerves II through XII grossly intact. SKIN: Warm, dry, no laceration, no petechiae, no rashes or lesions. Course Orders Ordered: ED Orders 07/10/20 12:41 XR chest 1V Stat EKG-12 Lead Stat RT Consult Eval and Treat Now 07/10/20 13:00 Complete Blood Count AUTO DIFF Stat Comprehensive Metabolic Panel Stat Lactate (Lactic Acid) Stat Lipase Stat Partial Thromboplastin Time Stat Procalcitonin Stat Prothrombin Time INR Stat 07/10/20 13:15 Blood Culture Stat 07/10/20 14:29 XR knee RT 3V Stat Discontinued Medications Sodium Chloride (Normal Saline 0.9%) 1,000 mls @ 1,000 mls/hr IV BOLUS ONE Stop: 07/10/20 13:40 Last Admin: 07/10/20 13:45 Dose: 1,000 mls/hr Documented by: COSME Vital Signs Vital signs: Vital Signs - 8 hr 07/10/20 12:13 07/10/20 12:59 07/10/20 13:00 Temperature 98 F Pulse Rate 82 75 75 Respiratory Rate 16 20 24 Blood Pressure 143/82 H 143/89 H Pulse Oximetry 97 98 98 07/10/20 13:30 07/10/20 15:24 Temperature Pulse Rate 67 70 Respiratory Rate 18 16 Blood Pressure 136/74 149/78 H Pulse Oximetry 97 98 MDM - Recheck/Abnormal Lab/Rx Lab Data Attestation: I reviewed the patient's lab results. Result diagrams: 07/10/20 13:00 07/10/20 13:00 Labs: Lab Results 07/10/20 07/10/20 07/10/20 Range/Units 13:00 13:00 13:00 WBC 8.2 (4.5-11.0) X10^3/uL RBC 4.99 (4.5-5.9) X10^6/uL Hgb 15.8 (13.5-17.5) g/dL Hct 47.1 (41-53) % MCV 94.4 (80-100) fL MCH 31.8 (26-34) PG MCHC 33.7 (30-36) % RDW 14.9 H (11.6-14.8) % Plt Count 207 (150-400) X10^3/uL Neut % (Auto) 64.8 (50-75) % Lymph % (Auto) 25.7 (25-40) % [place] % (Auto) 6.8 (3-14) % Eos % (Auto) 1.8 L (2-4) % Baso % (Auto) 0.9 (0-2) % Neut # (Auto) 5300 (4580-3789) /uL Lymph # (Auto) 2100 (8163-5588) /uL [place] # (Auto) 600 (0-900) /uL Eos # (Auto) 100 (0-450) /uL Baso # (Auto) 100 (0-100) /uL PT 12.3 (10.1-12.7) SECONDS INR 1.1 (0.9-1.3) APTT 36 (26.4-36.2) SECONDS Sodium 137 (137-145) mmol/L Potassium 4.1 (3.4-5.1) mmol/L Chloride 100 (98-107) mmol/L Carbon Dioxide 27 (22-32) mmol/L BUN 19 (9-20) mg/dL Creatinine 1.03 (0.66-1.25) mg/dL Estimated GFR > 60.0 (>60) mL/min BUN/Creatinine Ratio 18.4 (6-22) Glucose 105 (80-110) mg/dL Lactate (0.7-2.1) mmol/L Calcium 10.2 (8.4-10.2) mg/dL Total Bilirubin 0.8 (0.2-1.3) mg/dL AST 55 (17-59) IU/L ALT 77 H (<50) IU/L Alkaline Phosphatase 72 (38-126) U/L Total Protein 7.6 (6.3-8.2) g/dL Albumin 4.5 (3.5-5.0) g/dL Globulin 3.1 (1.7-4.1) g/dL Albumin/Globulin Ratio 1.5 (1.0-2.8) Lipase 45 (23-300) U/L Procalcitonin 0.06 (<0.5) ng/mL 07/10/20 Range/Units 13:00 WBC (4.5-11.0) X10^3/uL RBC (4.5-5.9) X10^6/uL Hgb (13.5-17.5) g/dL Hct (41-53) % MCV (80-100) fL MCH (26-34) PG MCHC (30-36) % RDW (11.6-14.8) % Plt Count (150-400) X10^3/uL Neut % (Auto) (50-75) % Lymph % (Auto) (25-40) % [place] % (Auto) (3-14) % Eos % (Auto) (2-4) % Baso % (Auto) (0-2) % Neut # (Auto) (0553-1897) /uL Lymph # (Auto) (2211-1486) /uL [place] # (Auto) (0-900) /uL Eos # (Auto) (0-450) /uL Baso # (Auto) (0-100) /uL PT (10.1-12.7) SECONDS INR (0.9-1.3) APTT (26.4-36.2) SECONDS Sodium (137-145) mmol/L Potassium (3.4-5.1) mmol/L Chloride (98-107) mmol/L Carbon Dioxide (22-32) mmol/L BUN (9-20) mg/dL Creatinine (0.66-1.25) mg/dL Estimated GFR (>60) mL/min BUN/Creatinine Ratio (6-22) Glucose (80-110) mg/dL Lactate 1.2 (0.7-2.1) mmol/L Calcium (8.4-10.2) mg/dL Total Bilirubin (0.2-1.3) mg/dL AST (17-59) IU/L ALT (<50) IU/L Alkaline Phosphatase (38-126) U/L Total Protein (6.3-8.2) g/dL Albumin (3.5-5.0) g/dL Globulin (1.7-4.1) g/dL Albumin/Globulin Ratio (1.0-2.8) Lipase (23-300) U/L Procalcitonin (<0.5) ng/mL Imaging Data Chest x-ray: Radiologist's Impression: PROCEDURE: XR CHEST 1V INDICATIONS: suspected sepsis TECHNIQUE: One view of the chest was acquired. COMPARISON: [facility], CHEST 2 VIEW, 07/13/2017, 15:31. FINDINGS: Surgical changes and devices: Cervical fusion hardware Lungs and pleura: Lungs are clear. No pleural effusions or pneumothorax. Mediastinum: Mediastinal contours appear normal. Heart size is normal. Bones and chest wall: No suspicious bony lesions. Overlying soft tissues appear unremarkable. IMPRESSION: No evidence acute pulmonary process. Dictated by: Elmo Delarosa M.D. on 07/10/2020 at 13:02 Extremity x-ray #1: Radiologist's Impression: PROCEDURE: XR KNEE RT 3V INDICATIONS: pain swelling RIGHT KNEE TECHNIQUE: 3 views of the knee were acquired. COMPARISON: None. FINDINGS: Bones: No fractures or dislocations. No suspicious bony lesions. Mild degenerative change. Soft tissues: No joint effusion. No suspicious soft tissue calcifications. IMPRESSION: Mild degenerative change. No evidence acute bony abnormality of the right knee. If clinical suspicion and/or symptoms persist, further assessment with repeat plain films, or advanced imaging (e.g., CT, MRI, or bone scan) may be helpful for further assessment. Dictated by: Elmo Delarosa M.D. on 07/10/2020 at 14:57 MDM Narrative Medical decision making narrative: At this time patient is afebrile, he does not have leukocytosis his knee is not erythematous, minimal swelling and he is able to walk on it. I do not suspect a septic arthritis at this time. He has been adequately treated for gout. At this time is needs to follow-up with orthopedics in continue indomethacin previously prescribed. I have explained to patient why do not think his knee is infected and discussed with him warning signs if it should become infected and when to return to the ED. Discharge Plan Departure Patient Disposition: Home Clinical Impression: Osteoarthritis Qualifiers: Osteoarthritis location: knee Osteoarthritis type: unspecified Laterality: right Qualified Code(s): M17.11 - Unilateral primary osteoarthritis, right knee Instructions: DI for Arthritis Activity Restrictions/Additional Instructions: *You have been diagnosed with arthritis *What to do: At this time I do not believe it your need to be infected. Her blood work shows improvement no elevated white count any you not have fever. I do recommend that follow-up with orthopedics for further evaluation. *Continue to take medications as directed *Follow up with your primary care provider in 2-3 days *Return to ER if you should have fever, redness, inability to walk, increased pain or any new, worsening or concerning symptoms Prescriptions: No Action cholecalciferol (vitamin D3) [Vitamin D3] 1,000 UNIT tablet 2,000 unit PO QDAY Qty: 0 RF: 0 colchicine 0.6 MG capsule 2 tab PO PRN PRN (Reason: Gout) Qty: 0 RF: 0 atorvastatin 10 mg Tablet 10 mg PO DAILY RF: 0 allopurinol 300 mg Tablet 300 mg PRN PRN (Reason: Gout) RF: 0 carbidopa-levodopa 25-100 mg Tablet 2 tab DAILY RF: 0 magnesium 1 tab DAILY RF: 0 pantoprazole 40 mg Tablet,Delayed Release (Dr/Ec) 40 mg PO BID RF: 0 duloxetine 60 mg Capsule,Delayed Release(Dr/Ec) 60 mg PO DAILY RF: 0 Referrals: Hazel Valencia MD [Primary Care Provider] -
--- NOTE | 2020-07-10 14:29 | DI.RAD.S_ITS ---
PROCEDURE: XR KNEE RT 3V INDICATIONS: pain swelling RIGHT KNEE TECHNIQUE: 3 views of the knee were acquired. COMPARISON: None. FINDINGS: Bones: No fractures or dislocations. No suspicious bony lesions. Mild degenerative change. Soft tissues: No joint effusion. No suspicious soft tissue calcifications. IMPRESSION: Mild degenerative change. No evidence acute bony abnormality of the right knee. If clinical suspicion and/or symptoms persist, further assessment with repeat plain films, or advanced imaging (e.g., CT, MRI, or bone scan) may be helpful for further assessment. Dictated by: Elmo Delarosa M.D. on 07/10/2020 at 14:57 Approved by: Elmo Delarosa M.D. on 07/10/2020 at 14:58
[2020-07-10 15:24] VITALS: BP 149/78; PULSE 70; RESP 16; O2SAT 98
== END 2020-07-10 15:25 | disposition home or self-care (01) ==
PROVIDERS: Emergency Provider Emergency Medicine; PCP Student in an Organized Health Care Education/Training Program
DX: M17.11 Unilateral primary osteoarthritis, right knee (principal); R79.9 Abnormal finding of blood chemistry, unspecified; R03.0 Elevated blood-pressure reading, without diagnosis of hypertension
CPT/HCPCS: 36415; 71045; 73562; 80053; 83605; 83690; 84145; 85025; 85610; 85730; 87040; 93005; 93010; 96360; 99284

== ENCOUNTER 2020-12-23 19:14 | Emergency (ER) | payer MEDICARE, OTHER, SELFPAY ==
[2020-12-23 19:17] VITALS: BP 134/72; PULSE 85; RESP 20; TEMP 36.2; O2SAT 94
--- NOTE | 2020-12-23 19:41 | ED.RECABL ---
HPI - Recheck/Abnormal Lab/Rx General Chief Complaint: Recheck/Abnormal Lab/Rx Stated Complaint: sent by MD, abnormal labs Time Seen by Provider: 12/23/20 19:22 Source: patient Mode of arrival: Ambulatory History of Present Illness HPI narrative: Patient is a 75-year-old male who went to his primary doctor's office today for a scheduled appointment. He states that for the past couple weeks he has had episodes where he has had very intense abdominal pain. It is not been every day. It is not associated with eating. He states that when it comes on it is pain all over his abdomen. Does not go away until he throws up and then the symptoms resolved for the next couple days. No fevers. His does state that he has had a very bright yellow urine. No change in bowel habits. 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 Went to his primary doctor's office today. Had labs drawn. Received a call this evening and was instructed to come to the emergency department for evaluation. Related Data Home Medications Medication Instructions Recorded Confirmed cholecalciferol (vitamin D3) 25 2,000 unit PO QDAY #0 06/14/17 09/25/19 mcg (1,000 unit) tablet (Vitamin D3) colchicine 0.6 mg capsule 2 tab PO PRN PRN #0 06/14/17 09/25/19 allopurinol 300 mg tablet 300 mg PRN PRN 12/25/18 09/25/19 atorvastatin 10 mg tablet 10 mg PO DAILY 12/25/18 09/25/19 carbidopa 25 mg-levodopa 100 mg 2 tab DAILY 12/25/18 09/25/19 tablet magnesium 1 tab DAILY 12/25/18 09/25/19 duloxetine 60 mg capsule,delayed 60 mg PO DAILY 09/25/19 09/25/19 release pantoprazole 40 mg tablet,delayed 40 mg PO BID 09/25/19 09/25/19 release Allergies Allergy/AdvReac Type Severity Reaction Status Date / Time No Known Drug Allergies Allergy Verified 08/10/17 13:24 Review of Systems Constitutional Constitutional: Reports as per HPI and Reports system reviewed and no additional complaints, except as documented Cardiovascular Cardiovascular: Reports as per HPI and Reports system reviewed and no additional complaints, except as documented Respiratory Respiratory: Reports as per HPI and Reports system reviewed and no additional complaints, except as documented Gastrointestinal Gastrointestinal: Reports as per HPI and Reports system reviewed and no additional complaints, except as documented Genitourinary Genitourinary: Reports system reviewed and no additional complaints, except as documented and Reports as per HPI Musculoskeletal Musculoskeletal: Reports system reviewed and no additional complaints, except as documented Integumentary/Breasts Skin/Breast: Reports system reviewed and no additional complaints, except as documented Neurologic Neurologic: Reports system reviewed and no additional complaints, except as documented Hematologic/Lymphatic On Anticoagulants: No Patient History Medical History (Updated 12/23/20 @ 22:57 by Moses Chow DO) Hemolytic anemia Stable angina Social History Smoking Status: Former smoker Smoking Status: Former smoker Substance Use Type: does not use Exam Initial Vital Signs Initial Vital Signs: Vital Signs Temperature 97.2 F L 12/23/20 19:17 Pulse Rate 85 12/23/20 19:17 Respiratory Rate 20 12/23/20 19:17 Blood Pressure 134/72 12/23/20 19:17 Pulse Oximetry 94 12/23/20 19:17 Const General: cooperative HENMT Head: normal to inspection and normocephalic Resp Effort & Inspection: normal respiratory effort Auscultation: clear to auscultation bilaterally Cardio Rate: regular rate Rhythm: regular rhythm GI Palpation: soft, No firm, No mass and No tender Skin General: no rashes or lesions noted Neuro General: patient alert, patient awake, patient oriented x3 and moves all extremities Cognition: normal cognition Speech: speech normal Extrem General: normal to inspection and capillary refill normal Psych Appearance: grossly normal and well kempt Course Orders Ordered: ED Orders 12/23/20 19:40 Acetaminophen Stat Basic Metabolic Panel Stat Complete Blood Count AUTO DIFF Stat Ethanol (ETOH) Stat Hepatic (Liver) Panel Stat Hepatitis Acute Panel Stat 12/23/20 19:41 US abdomen limited Stat 12/23/20 19:59 Partial Thromboplastin Time Stat Prothrombin Time INR Stat 12/23/20 21:09 CT abdomen pelvis w con Stat Discontinued Medications Sodium Chloride (Normal Saline 0.9%) 1,000 mls @ 1,000 mls/hr IV BOLUS ONE Stop: 12/23/20 22:33 Last Admin: 12/23/20 21:40 Dose: 1,000 mls/hr Documented by: ART Vital Signs Vital signs: Vital Signs - 8 hr 12/23/20 19:17 12/23/20 21:32 12/23/20 22:00 Temperature 97.2 F L Pulse Rate 85 74 72 Respiratory Rate 20 Blood Pressure 134/72 115/64 116/66 Pulse Oximetry 94 96 97 12/23/20 22:30 12/23/20 23:00 Temperature Pulse Rate 72 71 Respiratory Rate Blood Pressure 125/65 125/65 Pulse Oximetry 96 97 MDM - Recheck/Abnormal Lab/Rx Medical Records Attestation: I reviewed the patient's medical records. Lab Data Attestation: I reviewed the patient's lab results. Result diagrams: 12/23/20 19:40 12/23/20 19:40 Labs: Lab Results 12/23/20 12/23/20 12/23/20 Range/Units 19:40 19:40 19:59 WBC 7.4 (4.5-11.0) X10^3/uL RBC 5.04 (4.5-5.9) X10^6/uL Hgb 16.0 (13.5-17.5) g/dL Hct 46.7 (41-53) % MCV 92.7 (80-100) fL MCH 31.7 (26-34) PG MCHC 34.2 (30-36) % RDW 14.9 H (11.6-14.8) % Plt Count 218 (150-400) X10^3/uL Neut % (Auto) 61.8 (50-75) % Lymph % (Auto) 26.7 (25-40) % [place] % (Auto) 7.7 (3-14) % Eos % (Auto) 2.9 (2-4) % Baso % (Auto) 0.9 (0-2) % Neut # (Auto) 4600 (2474-1810) /uL Lymph # (Auto) 2000 (8280-9872) /uL [place] # (Auto) 600 (0-900) /uL Eos # (Auto) 200 (0-450) /uL Baso # (Auto) 100 (0-100) /uL PT 13.2 H (10.1-12.7) SECONDS INR 1.2 (0.9-1.3) APTT 35 (26.4-36.2) SECONDS Sodium 136 L (137-145) mmol/L Potassium 3.7 (3.4-5.1) mmol/L Chloride 104 (98-107) mmol/L Carbon Dioxide 22 (22-32) mmol/L BUN 14 (9-20) mg/dL Creatinine 0.97 (0.66-1.25) mg/dL Estimated GFR > 60.0 (>60) mL/min BUN/Creatinine Ratio 14.4 (6-22) Glucose 119 H (80-110) mg/dL Calcium 9.7 (8.4-10.2) mg/dL Total Bilirubin 6.9 H (0.2-1.3) mg/dL Conjugated Bilirubin 3.0 H (0.0-0.3) md/dL Unconjugated Bilirubin 2.0 H (0.0-1.1) mg/dL AST 230 H (17-59) IU/L ALT 375 H (<50) IU/L Alkaline Phosphatase 251 H (38-126) U/L Total Protein 7.6 (6.3-8.2) g/dL Albumin 4.5 (3.5-5.0) g/dL Globulin 3.1 (1.7-4.1) g/dL Albumin/Globulin Ratio 1.5 (1.0-2.8) Acetaminophen < 10 L (10-30) ug/mL Ethyl Alcohol < 10 ( - 10) mg/dL Imaging Data CT scan - abdomen/pelvis: Radiologist's Impression: [address] [id number] Scan ReportSigned Patient: Petar Segura [facility]#: [id number]: [id number]:[id number]/Sex: 75 / MDate of Service: 12/23/20Loc: EDAccession Number: [id number] Procedure: CT abdomen pelvis w con Ordering Provider: Moses Chow D.O. PROCEDURE: CT ABDOMEN PELVIS W CON INDICATIONS: Generalized abdominal pain with elevated liver function test TECHNIQUE: After the administration of oral and IV contrast, axial sections were acquired from the lung bases to the pubic symphysis. Coronal and sagittal reformats were performed. For radiation dose reduction, the following was used: automated exposure control, adjustment of mA and/or kV according to patient size. COMPARISON: [facility], , ABDOMEN LIMITED, 12/23/2020, 20:19. FINDINGS: Image quality: Excellent. Lung bases: There is mild dependent atelectasis. Heart: No significant findings. ABDOMEN: Liver: There is diffuse hypoattenuation of the liver consistent with fatty infiltration. Gallbladder: Unremarkable. Biliary ducts: Unremarkable. Pancreas: Unremarkable. Spleen: Unremarkable. Adrenal Glands: Unremarkable. Kidneys and Ureters: Unremarkable. Stomach and Bowel: There is a small hiatal hernia. Stomach, small bowel loops, and colon are normal in caliber and wall thickness. The appendix is not discretely identified but there are no pericecal inflammatory changes to suggest appendicitis. There is colonic diverticulosis without acute diverticulitis. Peritoneum: No abnormal intraperitoneal fluid. No free air. There is mild swirling of the small bowel mesentery without evidence of obstruction. Ventral Wall: There are 2 small fat-containing right paracentral ventral abdominal hernias. Abdominal Nodes: No retroperitoneal or mesenteric adenopathy by size criteria. Vessels: Aorta and inferior vena cava are normal in size. PELVIS: Pelvic Organs: Unremarkable. Bladder: Unremarkable. Pelvic Nodes: No enlarged lymph nodes. Miscellaneous: No inguinal hernias are seen. Bones: There is a minimal inferior endplate compression deformity in the T11 vertebral body. There is multilevel degenerative disc disease including severe degeneration at L2-L3 and moderate to severe degeneration at L1-L2. IMPRESSION: 1. Mild swirling of the abdominal mesentery without evidence of obstruction. 2. Hepatic steatosis. 3. No biliary ductal dilatation. 4. Right paracentral small fat-containing hernias without evidence bowel herniation or obstruction. 5. Colonic diverticulosis without acute diverticulitis. 6. Small hiatal hernia. Dictated by: Adam Najera M.D. on 12/23/2020 at 21:57 Approved by: Adam Najera M.D. on 12/23/2020 at 22:04 US - abdomen: Radiologist's Impression: [address] [id number] ReportSigned Patient: Petar Segura FMR#: [id number]: 5Acct:[id number]/Sex: 75 / MDate of Service: 12/23/20Loc: EDAccession Number: [id number] Procedure: US abdomen limited Ordering Provider: Lanker,Moses D.O. PROCEDURE: US ABDOMEN LIMITED INDICATIONS: RIGHT UPPER QUADRANT PAIN TECHNIQUE: Real-time focused scanning was performed of the abdomen, with image documentation. COMPARISON: [facility], CT, CT ABDOMEN PELVIS W CON, 12/23/2020, 21:14. FINDINGS: Liver is increased in echogenicity consistent with fatty infiltration. A small hypoechoic region is demonstrated along the gallbladder fossa likely representing focal fatty sparing. The left hepatic lobe is not well visualized due to bowel gas. The gallbladder is partially distended multiple small echogenic nonmobile stones and biliary sludge. There is mild nonspecific wall thickening measuring up to 0.5 cm and minimal localized pericholecystic fluid. Patient was reportedly tender on examination. No biliary ductal dilatation. The visualized common bile duct measures up to 0.5 cm. IMPRESSION: 1. Cholelithiasis with mild nonspecific gallbladder wall thickening and minimal pericholecystic fluid. The findings may reflect developing acute cholecystitis and correlation is recommended clinically. 2. Increased hepatic echogenicity consistent with steatosis with a small region of focal sparing along the gallbladder fossa. Dictated by: Adam Najera M.D. on 12/23/2020 at 22:33 Approved by: Adam Najera M.D. on 12/23/2020 at 22:38 MDM Narrative Medical decision making narrative: Patient is not having any symptoms today. Is not jaundiced has no right upper quadrant abdominal tenderness. Has no abdominal tenderness at all on my exam today. Does have a transaminitis. Also hyperbilirubinemia. Has cholelithiasis but no signs of acute cholecystitis. The CT scan of his abdomen is unremarkable. Tylenol is negative, alcohol is negative, he has had a blood transfusion in the past but they have all been within the past 5 years. Hepatitis panel is pending. He was informed of this. While having contact his primary doctor tomorrow for follow-up and also given the phone number for follow-up with General surgery. No indication for admission to the hospital. No indication for emergent GI consultation. Was given return precautions and follow-up instructions. He expressed understanding and agreement. Discharge Plan Departure Patient Disposition: Home Clinical Impression: Transaminitis, Hyperbilirubinemia, Cholelithiasis Instructions: DI for Gallstones Activity Restrictions/Additional Instructions: The hepatitis panel was pending at the time of your discharge. You also had elevations in her liver function tests and also elevations in her bilirubin. You also had gallstones which could be the cause of these issues. I recommend that tomorrow you contact your primary doctor for a follow-up. Also recommend that you contact the [facility] at the number provided below. Return to the emergency department for any new or worsening symptoms like we discussed. Prescriptions: No Action cholecalciferol (vitamin D3) [Vitamin D3] 1,000 UNIT tablet 2,000 unit PO QDAY Qty: 0 RF: 0 colchicine 0.6 MG capsule 2 tab PO PRN PRN (Reason: Gout) Qty: 0 RF: 0 atorvastatin 10 mg Tablet 10 mg PO DAILY RF: 0 allopurinol 300 mg Tablet 300 mg PRN PRN (Reason: Gout) RF: 0 carbidopa-levodopa 25-100 mg Tablet 2 tab DAILY RF: 0 magnesium 1 tab DAILY RF: 0 pantoprazole 40 mg Tablet,Delayed Release (Dr/Ec) 40 mg PO BID RF: 0 duloxetine 60 mg Capsule,Delayed Release(Dr/Ec) 60 mg PO DAILY RF: 0 Referrals: Hazel Valencia MD [Primary Care Provider] - [place] Mota MD [Physician] -
[2020-12-23 19:46] LABS: Add Manual Diff / Slide Review NO; Basophils Absolute Auto 100 /uL (0-100); Basophils Percent Auto 0.9 % (0-2); Eosinophils Absolute Auto 200 /uL (0-450); Eosinophils Percent Auto 2.9 % (2-4); Hematocrit 46.7 % (41-53); Lymphocytes Absolute Auto 2000 /uL (1100-4500); Lymphocytes Percent Auto 26.7 % (25-40); Mean Corpuscular HGB Conc 34.2 % (30-36); Mean Corpuscular Hemoglobin 31.7 PG (26-34); Mean Corpuscular Volume 92.7 fL (80-100); Monocytes Absolute Auto 600 /uL (0-900); Monocytes Percent Auto 7.7 % (3-14); Neutrophils Absolute Auto 4600 /uL (1500-7000); Neutrophils Percent Auto 61.8 % (50-75); Platelet Count 218 X10^3/uL (150-400); Red Blood Cell Count 5.04 X10^6/uL (4.5-5.9); Red Cell Distribution Width 14.9 % (11.6-14.8); White Blood Cell Count 7.4 X10^3/uL (4.5-11.0)
[2020-12-23 19:57] LABS: Acetaminophen < 10 ug/mL (10-30); Alanine Aminotransferase 375 IU/L (<50); Albumin 4.5 g/dL (3.5-5.0); Albumin Globulin Ratio 1.5 (1.0-2.8); Alkaline Phosphatase 251 U/L (38-126); Aspartate Aminotransferase 230 IU/L (17-59); BUN Creatinine Ratio 14.4 (6-22); Bilirubin Total 6.9 mg/dL (0.2-1.3); Blood Urea Nitrogen 14 mg/dL (9-20); Calcium 9.7 mg/dL (8.4-10.2); Carbon Dioxide 22 mmol/L (22-32); Chloride 104 mmol/L (98-107); Estimated Glomerular Filt Rate > 60.0 mL/min (>60); Ethanol (ETOH) < 10 mg/dL; Globulin 3.1 g/dL (1.7-4.1); Glucose 119 mg/dL (80-110); HEMOLYSIS 17 (0-50); Potassium 3.7 mmol/L (3.4-5.1); Sodium 136 mmol/L (137-145); Total Protein 7.6 g/dL (6.3-8.2)
[2020-12-23 20:11] LABS: INR 1.2 (0.9-1.3); Prothrombin Time 13.2 SECONDS (10.1-12.7)
[2020-12-23 20:14] LABS: PTT Partial Thromboplastin Tim 35 SECONDS (26.4-36.2)
--- NOTE | 2020-12-23 21:09 | DI.CT.S_ITS ---
PROCEDURE: CT ABDOMEN PELVIS W CON INDICATIONS: Generalized abdominal pain with elevated liver function test TECHNIQUE: After the administration of oral and IV contrast, axial sections were acquired from the lung bases to the pubic symphysis. Coronal and sagittal reformats were performed. For radiation dose reduction, the following was used: automated exposure control, adjustment of mA and/or kV according to patient size. COMPARISON: [facility], , ABDOMEN LIMITED, 12/23/2020, 20:19. FINDINGS: Image quality: Excellent. Lung bases: There is mild dependent atelectasis. Heart: No significant findings. ABDOMEN: Liver: There is diffuse hypoattenuation of the liver consistent with fatty infiltration. Gallbladder: Unremarkable. Biliary ducts: Unremarkable. Pancreas: Unremarkable. Spleen: Unremarkable. Adrenal Glands: Unremarkable. Kidneys and Ureters: Unremarkable. Stomach and Bowel: There is a small hiatal hernia. Stomach, small bowel loops, and colon are normal in caliber and wall thickness. The appendix is not discretely identified but there are no pericecal inflammatory changes to suggest appendicitis. There is colonic diverticulosis without acute diverticulitis. Peritoneum: No abnormal intraperitoneal fluid. No free air. There is mild swirling of the small bowel mesentery without evidence of obstruction. Ventral Wall: There are 2 small fat-containing right paracentral ventral abdominal hernias. Abdominal Nodes: No retroperitoneal or mesenteric adenopathy by size criteria. Vessels: Aorta and inferior vena cava are normal in size. PELVIS: Pelvic Organs: Unremarkable. Bladder: Unremarkable. Pelvic Nodes: No enlarged lymph nodes. Miscellaneous: No inguinal hernias are seen. Bones: There is a minimal inferior endplate compression deformity in the T11 vertebral body. There is multilevel degenerative disc disease including severe degeneration at L2-L3 and moderate to severe degeneration at L1-L2. IMPRESSION: 1. Mild swirling of the abdominal mesentery without evidence of obstruction. 2. Hepatic steatosis. 3. No biliary ductal dilatation. 4. Right paracentral small fat-containing hernias without evidence bowel herniation or obstruction. 5. Colonic diverticulosis without acute diverticulitis. 6. Small hiatal hernia. Dictated by: Adam Najera M.D. on 12/23/2020 at 21:57 Approved by: Adam Najera M.D. on 12/23/2020 at 22:04
[2020-12-23 21:32] VITALS: BP 115/64; PULSE 74; O2SAT 96
[2020-12-23] MEDS: SODIUM CHLORIDE 0.9% 1,000 ML 1000 ML IV (21:40)
[2020-12-23 22:00] VITALS: BP 116/66; PULSE 72; O2SAT 97
[2020-12-23 22:30] VITALS: BP 125/65; PULSE 72; O2SAT 96
[2020-12-23 23:00] VITALS: BP 125/65; PULSE 71; O2SAT 97
[2020-12-25 03:34] LABS: HBsAg Screen Negative (Negative); Hepatitis A Antibody IgM Negative (Negative); Hepatitis B Core Antibody IgM Negative (Negative); Hepatitis C Antibody <0.1 s/co ratio (0.0-0.9)
== END 2020-12-23 23:10 | disposition home or self-care (01) ==
PROVIDERS: Emergency Provider Emergency Medicine; PCP Student in an Organized Health Care Education/Training Program; Referring Provider Student in an Organized Health Care Education/Training Program
DX: R74.01 Elevation of levels of liver transaminase levels (principal); E80.6 Other disorders of bilirubin metabolism; K80.20 Calculus of gallbladder without cholecystitis without obstruction
CPT/HCPCS: 36415; 74177; 76705; 80048; 80053; 80074; 80076; 80320; 80329; 81001; 83690; 84443; 85025; 85610; 85730; 96360; 99284; 99285; G0480; Q9967

== ENCOUNTER → 2021-01-01 10:07 | Outpatient (CLI) | payer MEDICARE, OTHER, SELFPAY ==
[2021-01-01 10:50] LABS: Add Manual Diff / Slide Review NO; Basophils Absolute Auto 0 /uL (0-100); Basophils Percent Auto 0.4 % (0-2); Eosinophils Absolute Auto 100 /uL (0-450); Eosinophils Percent Auto 0.6 % (2-4); Hematocrit 47.1 % (41-53); Hemoglobin 15.6 g/dL (13.5-17.5); Lymphocytes Absolute Auto 1200 /uL (1100-4500); Lymphocytes Percent Auto 9.5 % (25-40); Mean Corpuscular HGB Conc 33.1 % (30-36); Mean Corpuscular Hemoglobin 30.8 PG (26-34); Mean Corpuscular Volume 93.3 fL (80-100); Monocytes Absolute Auto 700 /uL (0-900); Monocytes Percent Auto 5.7 % (3-14); Neutrophils Absolute Auto 10500 /uL (1500-7000); Neutrophils Percent Auto 83.8 % (50-75); Platelet Count 317 X10^3/uL (150-400); Red Blood Cell Count 5.04 X10^6/uL (4.5-5.9); Red Cell Distribution Width 15.5 % (11.6-14.8); White Blood Cell Count 12.5 X10^3/uL (4.5-11.0)
[2021-01-01 11:14] LABS: Alanine Aminotransferase 349 IU/L (<50); Albumin 4.3 g/dL (3.5-5.0); Albumin Globulin Ratio 1.3 (1.0-2.8); Alkaline Phosphatase 299 U/L (38-126); Aspartate Aminotransferase 365 IU/L (17-59); Bilirubin Conjugated 3.6 md/dL (0.0-0.3); Bilirubin Total 8.1 mg/dL (0.2-1.3); Bilirubin Unconjugated 2.2 mg/dL (0.0-1.1); Globulin 3.3 g/dL (1.7-4.1); HEMOLYSIS < 15 (0-50); Lipase 44 U/L (23-300); Total Protein 7.6 g/dL (6.3-8.2)
== END ==
PROVIDERS: PCP Student in an Organized Health Care Education/Training Program; Referring Provider Internal Medicine Gastroenterology; Visit Provider Internal Medicine Gastroenterology
DX: R94.5 Abnormal results of liver function studies (principal); R74.8 Abnormal levels of other serum enzymes
CPT/HCPCS: 36415; 80076; 83690; 85025

== ENCOUNTER → 2021-01-04 06:18 | Outpatient (CLI) | payer MEDICARE, OTHER, SELFPAY ==
--- NOTE | 2021-01-04 | DI.MRI.S_ITS ---
PROCEDURE: MR ABDOMEN WO CON INDICATIONS: Unspecified abdominal pain TECHNIQUE: Coronal HASTE through the abdomen, axial 2-D FLASH in- and [id number], and breath-hold T2 FSE with fat saturation through the biliary system and pancreas. Oblique coronal and axial thin-slice HASTE, radial thick-slab HASTE centered on the extrahepatic bile ducts. Intravenous secretin: Not requested. COMPARISON: [facility], CT, CT ABDOMEN PELVIS W CON, 12/23/2020, 21:14. FINDINGS: Image quality: Excellent. Pancreas and biliary system: There is a 3 mm rounded stone in the distal common duct. This sits roughly 1.3 cm from the ampulla, just above a thin, band like mild stricture of the common duct. The common bile duct is of normal caliber measuring 6 mm. Common hepatic duct also measures 6 mm. No intrahepatic biliary dilatation. Gallbladder demonstrates a normal wall thickness, however contains multiple tiny granular stones layering dependently, similar in size to the stone in the common duct. Pancreas and pancreatic duct are normal in morphology and size. There is classic pancreatic ductal anatomy. Other solid organs: Liver is normal in size and demonstrates mild signal drop on T1 out of phase imaging. Spleen is normal in size. No adrenal nodules. Both kidneys are normal in size, without hydronephrosis. Nodes and vessels: No retroperitoneal or mesenteric adenopathy by size criteria. Aorta and inferior vena cava are normal in size. Bowel and peritoneum: Unenhanced bowel loops are normal in caliber. No free fluid. Lung bases: No basal pleural effusions. Heart size is normal. Bones and soft tissues: Moderate-sized fat containing periumbilical hernia. A small fat containing supraumbilical ventral hernia.. Bone marrow is of normal overall signal. IMPRESSION: 1. 3 mm nonobstructing distal common duct stone. 2. No intra or extrahepatic biliary dilatation. 3. Cholelithiasis. 4. Mild hepatic steatosis. 5. No evidence of bowel obstruction. 6. Fat containing ventral abdominal wall hernias. Dictated by: Marlen Mullen M.D. on 01/04/2021 at 10:05 Approved by: Marlen Mullen M.D. on 01/04/2021 at 10:18
== END ==
PROVIDERS: PCP Student in an Organized Health Care Education/Training Program; Referring Provider Internal Medicine Gastroenterology; Visit Provider Internal Medicine Gastroenterology
DX: R10.9 Unspecified abdominal pain (principal); R17 Unspecified jaundice; K80.70 Calculus of gallbladder and bile duct without cholecystitis without obstruction; K42.9 Umbilical hernia without obstruction or gangrene; K76.0 Fatty (change of) liver, not elsewhere classified
CPT/HCPCS: 74181

== ENCOUNTER 2021-01-04 22:00 | Emergency (ER) | payer MEDICARE, OTHER, SELFPAY ==
[2021-01-04] VITALS (7 sets, daily range): BP systolic 153–200; BP diastolic 80–89; PULSE 70–81; RESP 5–42; TEMP 35.9; O2SAT 91–99; BMI 37.0
--- NOTE | 2021-01-04 22:02 | ED.ABDPAIN ---
HPI - Abdominal Pain General Chief Complaint: Abdominal Pain Stated Complaint: GALLBLADDER ATTACK Time Seen by Provider: 01/04/21 22:02 History of Present Illness HPI narrative: 75-year-old male nonsmoker with history of symptomatic anemia, hyperlipidemia, gout, GERD and known gallstones presents with his in the chief complaint of worsening right upper quadrant pain, subjective fever and chills, nausea and jaundice over the past few days. he was seen here on December 23 and diagnosed with coli lithiasis in the absence of infectious symptoms. Since his discharge he has been connected with Dr. Armstrong at [facility] who ordered some outpatient labs as well as an MRCP, which was done today and found an obstructing common bile duct stone. Patient has been NPO since about noon today. He takes no blood thinners. He has had no confusion. Related Data Home Medications Medication Instructions Recorded Confirmed cholecalciferol (vitamin D3) 25 2,000 unit PO QDAY #0 06/14/17 09/25/19 mcg (1,000 unit) tablet (Vitamin D3) colchicine 0.6 mg capsule 2 tab PO PRN PRN #0 06/14/17 09/25/19 allopurinol 300 mg tablet 300 mg PRN PRN 12/25/18 09/25/19 atorvastatin 10 mg tablet 10 mg PO DAILY 12/25/18 09/25/19 carbidopa 25 mg-levodopa 100 mg 2 tab DAILY 12/25/18 09/25/19 tablet magnesium 1 tab DAILY 12/25/18 09/25/19 duloxetine 60 mg capsule,delayed 60 mg PO DAILY 09/25/19 09/25/19 release pantoprazole 40 mg tablet,delayed 40 mg PO BID 09/25/19 09/25/19 release Allergies Allergy/AdvReac Type Severity Reaction Status Date / Time No Known Drug Allergies Allergy Verified 08/10/17 13:24 Review of Systems Review of Systems Narrative: GENERAL: See HPI HEENT: Denies sinus pain, ear pain, sore throat, difficulty swallowing, dizziness. RESPIRATORY: Denies dyspnea, cough, wheezing, hemoptysis, sputum. CARDIOVASCULAR: Denies chest pain, palpitations, orthopnea, edema, GASTROINTESTINAL: See HPI : Denies dysuria, frequency, incontinence, hematuria, urinary retention. MUSCULOSKELETAL: denies weakness, joint pain, or bony pain SKIN: See HPI NEUROLOGIC: Denies weakness, headache, numbness, change in speech, confusion, seizures, incoordination. PSYCHIATRIC: No concerning psychosocial issues. 12 point review of systems is negative except for those stated above Patient History Medical History Hemolytic anemia Stable angina Social History Smoking Status: Former smoker Smoking Status: Former smoker Substance Use Type: does not use Exam Narrative Exam Narrative: GENERAL: [75 year old patient appears stated age. Well-developed patient, in moderate distress, clearly in pain HEAD: Atraumatic. Normocephalic. EYES: Pupils equal round and reactive. Extraocular motions intact. No scleral icterus. No injection or drainage. Scleral icterus ENT: Nose without bleeding, purulent drainage. Throat without erythema, tonsillar hypertrophy or exudate. Airway patent. NECK: Trachea midline. Non tender CARDIOVASCULAR: Regular rate and rhythm without murmurs, gallops, or rubs. RESPIRATORY: Clear to auscultation. Breath sounds equal bilaterally. No wheezes, rales, or rhonchi. GASTROINTESTINAL: Abdomen soft, significant tenderness in epigastrium and right upper quadrant EXTREMITIES: No edema or joint tenderness. BACK: Nontender without deformity or crepitance. No flank tenderness. NEURO: AOx3. SKIN: No rash or erythema of visible areas, jaundice Initial Vital Signs Initial Vital Signs: Vital Signs Temperature 96.6 F L 01/04/21 22:03 Pulse Rate 76 01/04/21 22:03 Respiratory Rate 18 01/04/21 22:03 Blood Pressure 200/89 H 01/04/21 22:03 Pulse Oximetry 98 01/04/21 22:03 Course Orders Ordered: Discontinued Medications Hydromorphone HCl (Hydromorphone 0.5 Mg Inj) 0.5 mg IV NOW ONE Stop: 01/04/21 22:13 Last Admin: 01/04/21 22:25 Dose: 0.5 mg Documented by: AGNES Hydromorphone HCl (Hydromorphone 0.5 Mg Inj) 0.5 mg IV NOW ONE Stop: 01/05/21 00:12 Last Admin: 01/05/21 00:15 Dose: 0.5 mg Documented by: AGNES Piperacillin Sod/Tazobactam (Sod 4.5 gm/ Sodium Chloride) 100 mls @ 200 mls/hr IV NOW ONE Stop: 01/04/21 22:11 Last Infusion: 01/04/21 23:34 Dose: 0 mls/hr Documented by: Admin: 01/04/21 22:25 Dose: 200 mls/hr Documented by: AGNES Vancomycin HCl/Dextrose (Vancomycin) 1,500 mg in 300 mls @ 200 mls/hr IV NOW ONE Stop: 01/04/21 23:39 Last Infusion: 01/05/21 01:11 Dose: 0 mls/hr Documented by: Admin: 01/04/21 23:14 Dose: 200 mls/hr Documented by: AGNES Sodium Chloride (Normal Saline 0.9%) 1,000 mls @ 1,000 mls/hr IV BOLUS ONE Stop: 01/04/21 23:17 Last Infusion: 01/04/21 23:50 Dose: 0 mls/hr Documented by: Admin: 01/04/21 22:40 Dose: 1,000 mls/hr Documented by: AGNES Sodium Chloride (Normal Saline 0.9%) 1,776 mls @ 592 mls/hr 30 ml/kg infuse over 3 hr (1776 ml) IV NOW ONE Stop: 01/05/21 02:30 Last Infusion: 01/05/21 03:19 Dose: 0 mls/hr Documented by: Admin: 01/04/21 23:49 Dose: 592 mls/hr Documented by: AGNES Norepinephrine Bitartrate 4 mg (/ Dextrose) 254 mls @ 30.48 mls/hr IV TITRATE OLIVIA; Protocol Sodium Chloride (Normal Saline 0.9%) 1,000 mls @ 125 mls/hr IV BOLUS ONE Stop: 01/05/21 12:19 Last Infusion: 01/05/21 06:05 Dose: 0 mls/hr Documented by: Admin: 01/05/21 05:05 Dose: 125 mls/hr Documented by: SHAMEKA Piperacillin Sod/Tazobactam (Sod 3.375 gm/ Sodium Chloride) 100 mls @ 25 mls/hr IV NOW ONE Stop: 01/05/21 04:52 Last Infusion: 01/05/21 06:05 Dose: 0 mls/hr Documented by: Admin: 01/05/21 05:03 Dose: 25 mls/hr Documented by: SHAMEKA Ondansetron HCl (Ondansetron 4 Mg/2 Ml Inj) 4 mg IV NOW ONE Stop: 01/04/21 22:13 Last Admin: 01/04/21 22:26 Dose: 4 mg Documented by: AGNES Reevaluation(s) Reevaluation #1: called to see patient, though he is still feeling ok his BP is trending down and now in the 90s. Patient moved to trauma bay with plans for central line. Levophed ordered and US contacted for evaluation of GB. Still no beds Consultations Consultation #1: [facility] - GI not able to do ERCP [place] - no beds [facility] - No beds - No beds [facility] - No beds /[facility] - No beds [facility] called to help with placement Consultation #2: [facility] continuing to work on bed. Dr. Polanco has been consulted and shares the opinion that patient will need an MRCP and Transfer center working on bed vs. ED to ED transfer. Dr. Michael happy to accept. Vital Signs Vital signs: Vital Signs - 8 hr 01/04/21 22:03 01/04/21 22:06 01/04/21 22:07 Temperature 96.6 F L Pulse Rate 76 70 70 Respiratory Rate 18 42 H 35 H Blood Pressure 200/89 H 200/89 H Pulse Oximetry 98 98 97 01/04/21 22:30 01/04/21 22:36 01/04/21 23:00 Temperature Pulse Rate 75 77 81 Respiratory Rate 22 5 L Blood Pressure 153/82 H 164/80 H Pulse Oximetry 96 91 98 01/04/21 23:30 01/05/21 00:00 01/05/21 00:01 Temperature Pulse Rate 78 82 83 Respiratory Rate Blood Pressure 163/83 H 218/100 H Pulse Oximetry 99 100 100 01/05/21 00:30 01/05/21 00:31 01/05/21 01:00 Temperature Pulse Rate 84 84 86 Respiratory Rate Blood Pressure 169/83 H 187/86 H Pulse Oximetry 99 99 98 01/05/21 01:30 01/05/21 02:00 01/05/21 02:01 Temperature Pulse Rate 87 82 83 Respiratory Rate Blood Pressure 207/99 H 110/65 Pulse Oximetry 97 96 96 01/05/21 02:02 01/05/21 02:03 01/05/21 02:10 Temperature Pulse Rate 86 85 82 Respiratory Rate Blood Pressure 115/65 107/59 L 104/56 L Pulse Oximetry 96 96 96 01/05/21 02:20 01/05/21 02:27 01/05/21 02:30 Temperature Pulse Rate 81 84 83 Respiratory Rate 11 L 12 Blood Pressure 96/51 L 108/58 L 99/54 L Pulse Oximetry 95 94 96 01/05/21 02:40 01/05/21 02:50 01/05/21 03:00 Temperature Pulse Rate 86 86 84 Respiratory Rate 20 20 12 Blood Pressure 117/59 L 122/56 L 121/66 Pulse Oximetry 99 99 97 01/05/21 03:10 01/05/21 03:20 01/05/21 03:30 Temperature Pulse Rate 84 79 79 Respiratory Rate 17 17 17 Blood Pressure 117/64 112/58 L 103/59 L Pulse Oximetry 98 96 96 01/05/21 03:40 01/05/21 03:50 01/05/21 04:00 Temperature Pulse Rate 75 76 79 Respiratory Rate 17 16 14 Blood Pressure 106/56 L 105/58 L 104/55 L Pulse Oximetry 96 97 97 01/05/21 04:10 Temperature Pulse Rate 75 Respiratory Rate 17 Blood Pressure 105/55 L Pulse Oximetry 97 MDM - Abdominal Pain Lab Data Result diagrams: 01/04/21 22:14 01/04/21 22:14 Labs: Lab Results 01/04/21 01/04/21 01/04/21 Range/Units 22:10 22:14 22:14 WBC 15.6 H (4.5-11.0) X10^3/uL RBC 5.10 (4.5-5.9) X10^6/uL Hgb 16.2 (13.5-17.5) g/dL Hct 47.8 (41-53) % MCV 93.7 (80-100) fL MCH 31.8 (26-34) PG MCHC 33.9 (30-36) % RDW 15.6 H (11.6-14.8) % Plt Count 341 (150-400) X10^3/uL Neut % (Auto) 86.5 H (50-75) % Lymph % (Auto) 8.6 L (25-40) % [place] % (Auto) 4.1 (3-14) % Eos % (Auto) 0.2 L (2-4) % Baso % (Auto) 0.6 (0-2) % Neut # (Auto) 22589 H (4972-4153) /uL Lymph # (Auto) 1400 (3750-0643) /uL [place] # (Auto) 600 (0-900) /uL Eos # (Auto) 0 (0-450) /uL Baso # (Auto) 100 (0-100) /uL PT (10.1-12.7) SECONDS INR (0.9-1.3) Sodium 141 (137-145) mmol/L Potassium 3.4 (3.4-5.1) mmol/L Chloride 101 (98-107) mmol/L Carbon Dioxide 26 (22-32) mmol/L BUN 17 (9-20) mg/dL Creatinine 1.16 (0.66-1.25) mg/dL Estimated GFR > 60.0 (>60) mL/min BUN/Creatinine Ratio 14.7 (6-22) Glucose 156 H (80-110) mg/dL Lactate (0.7-2.1) mmol/L Calcium 10.3 H (8.4-10.2) mg/dL Total Bilirubin 10.0 H (0.2-1.3) mg/dL AST 209 H (17-59) IU/L ALT 285 H (<50) IU/L Alkaline Phosphatase 438 H (38-126) U/L C-Reactive Protein 3.7 H (<1.0) mg/dL Total Protein 8.5 H (6.3-8.2) g/dL Albumin 4.6 (3.5-5.0) g/dL Globulin 3.9 (1.7-4.1) g/dL Albumin/Globulin Ratio 1.2 (1.0-2.8) Lipase 14650 H D (23-300) U/L Urine Color Urine Appearance Urine pH (4.5-8.0) Ur Specific Prole (1.000-1.035) Urine Protein (Negative) Urine Glucose (UA) (Negative) g/dL Urine Ketones (NEGATIVE) Urine Occult Blood (Negative) Urine Nitrate (Negative) Urine Bilirubin (NEGATIVE) Ur Bilirubin Confirm (Negative) Urine Urobilinogen (0.2) E.U./dL Ur Leukocyte Esterase (NEGATIVE) Urine RBC (0-5/HPF) Urine WBC (0-5/HPF) Urine Bacteria (None) Granular Casts (None) Urine Mucus (Negative) Ur Culture Indicated? SARS-CoV-2 (PCR) Negative (Negative) 01/04/21 01/04/21 01/05/21 Range/Units 22:14 22:14 00:46 WBC (4.5-11.0) X10^3/uL RBC (4.5-5.9) X10^6/uL Hgb (13.5-17.5) g/dL Hct (41-53) % MCV (80-100) fL MCH (26-34) PG MCHC (30-36) % RDW (11.6-14.8) % Plt Count (150-400) X10^3/uL Neut % (Auto) (50-75) % Lymph % (Auto) (25-40) % [place] % (Auto) (3-14) % Eos % (Auto) (2-4) % Baso % (Auto) (0-2) % Neut # (Auto) (1951-1398) /uL Lymph # (Auto) (0778-7770) /uL [place] # (Auto) (0-900) /uL Eos # (Auto) (0-450) /uL Baso # (Auto) (0-100) /uL PT 13.8 H (10.1-12.7) SECONDS INR 1.2 (0.9-1.3) Sodium (137-145) mmol/L Potassium (3.4-5.1) mmol/L Chloride (98-107) mmol/L Carbon Dioxide (22-32) mmol/L BUN (9-20) mg/dL Creatinine (0.66-1.25) mg/dL Estimated GFR (>60) mL/min BUN/Creatinine Ratio (6-22) Glucose (80-110) mg/dL Lactate 2.4 H < 0.5 L (0.7-2.1) mmol/L Calcium (8.4-10.2) mg/dL Total Bilirubin (0.2-1.3) mg/dL AST (17-59) IU/L ALT (<50) IU/L Alkaline Phosphatase (38-126) U/L C-Reactive Protein (<1.0) mg/dL Total Protein (6.3-8.2) g/dL Albumin (3.5-5.0) g/dL Globulin (1.7-4.1) g/dL Albumin/Globulin Ratio (1.0-2.8) Lipase (23-300) U/L Urine Color Urine Appearance Urine pH (4.5-8.0) Ur Specific Prole (1.000-1.035) Urine Protein (Negative) Urine Glucose (UA) (Negative) g/dL Urine Ketones (NEGATIVE) Urine Occult Blood (Negative) Urine Nitrate (Negative) Urine Bilirubin (NEGATIVE) Ur Bilirubin Confirm (Negative) Urine Urobilinogen (0.2) E.U./dL Ur Leukocyte Esterase (NEGATIVE) Urine RBC (0-5/HPF) Urine WBC (0-5/HPF) Urine Bacteria (None) Granular Casts (None) Urine Mucus (Negative) Ur Culture Indicated? SARS-CoV-2 (PCR) (Negative) 01/05/21 Range/Units 01:30 WBC (4.5-11.0) X10^3/uL RBC (4.5-5.9) X10^6/uL Hgb (13.5-17.5) g/dL Hct (41-53) % MCV (80-100) fL MCH (26-34) PG MCHC (30-36) % RDW (11.6-14.8) % Plt Count (150-400) X10^3/uL Neut % (Auto) (50-75) % Lymph % (Auto) (25-40) % [place] % (Auto) (3-14) % Eos % (Auto) (2-4) % Baso % (Auto) (0-2) % Neut # (Auto) (4495-7966) /uL Lymph # (Auto) (0644-9429) /uL [place] # (Auto) (0-900) /uL Eos # (Auto) (0-450) /uL Baso # (Auto) (0-100) /uL PT (10.1-12.7) SECONDS INR (0.9-1.3) Sodium (137-145) mmol/L Potassium (3.4-5.1) mmol/L Chloride (98-107) mmol/L Carbon Dioxide (22-32) mmol/L BUN (9-20) mg/dL Creatinine (0.66-1.25) mg/dL Estimated GFR (>60) mL/min BUN/Creatinine Ratio (6-22) Glucose (80-110) mg/dL Lactate (0.7-2.1) mmol/L Calcium (8.4-10.2) mg/dL Total Bilirubin (0.2-1.3) mg/dL AST (17-59) IU/L ALT (<50) IU/L Alkaline Phosphatase (38-126) U/L C-Reactive Protein (<1.0) mg/dL Total Protein (6.3-8.2) g/dL Albumin (3.5-5.0) g/dL Globulin (1.7-4.1) g/dL Albumin/Globulin Ratio (1.0-2.8) Lipase (23-300) U/L Urine Color [place] Urine Appearance Clear Urine pH 5.0 (4.5-8.0) Ur Specific Prole 1.025 (1.000-1.035) Urine Protein Trace H (Negative) Urine Glucose (UA) Negative (Negative) g/dL Urine Ketones Trace H (NEGATIVE) Urine Occult Blood Negative (Negative) Urine Nitrate Negative (Negative) Urine Bilirubin 2+ H (NEGATIVE) Ur Bilirubin Confirm Positive H (Negative) Urine Urobilinogen 0.2 (0.2) E.U./dL Ur Leukocyte Esterase Negative (NEGATIVE) Urine RBC None seen (0-5/HPF) Urine WBC None seen (0-5/HPF) Urine Bacteria None seen (None) Granular Casts 0-1/lpf (None) Urine Mucus 1+ H (Negative) Ur Culture Indicated? Cult not indicated SARS-CoV-2 (PCR) (Negative) Imaging Data MRCP: Radiologist's Impression: [address] [address] Magnetic Resonance Report Signed Patient: Petar Segura MR#: [id number] : 1945 Acct:[id number] Age/Sex: 75 / M Date of Service: 01/04/21 Loc: MRI Accession Number: [id number] ?? Procedure: MR abdomen wo con Ordering Provider: Armin Morton MD PROCEDURE:? MR ABDOMEN WO CON ? INDICATIONS:? Unspecified abdominal pain ? TECHNIQUE:? Coronal HASTE through the abdomen, axial 2-D FLASH in- and [id number], and breath-hold T2 FSE with fat saturation through the biliary system and pancreas.? Oblique coronal and axial thin-slice HASTE, radial thick-slab HASTE centered on the extrahepatic bile ducts.? ? ? Intravenous secretin:? Not requested.? ? COMPARISON:? [facility], CT, CT ABDOMEN PELVIS W CON, 12/23/2020, 21:14. ? FINDINGS:? Image quality:? Excellent.? ? Pancreas and biliary system:? There is a 3 mm rounded stone in the distal common duct.? This sits roughly 1.3 cm from the ampulla, just above a thin, band like mild stricture of the common duct.? The common bile duct is of normal caliber measuring 6 mm. Common hepatic duct also measures 6 mm.? No intrahepatic biliary dilatation.? Gallbladder demonstrates a normal wall thickness, however contains multiple tiny granular stones layering dependently, similar in size to the stone in the common duct.? Pancreas and pancreatic duct are normal in morphology and size.? There is classic pancreatic ductal anatomy.? ? Other solid organs:? Liver is normal in size and demonstrates mild signal drop on T1 out of phase imaging.? Spleen is normal in size.? No adrenal nodules.? Both kidneys are normal in size, without hydronephrosis.? ? Nodes and vessels:? No retroperitoneal or mesenteric adenopathy by size criteria.? Aorta and inferior vena cava are normal in size.? ? Bowel and peritoneum:? Unenhanced bowel loops are normal in caliber.? No free fluid.? ? Lung bases:? No basal pleural effusions.? Heart size is normal.? ? Bones and soft tissues:? Moderate-sized fat containing periumbilical hernia.? A small fat containing supraumbilical ventral hernia..? Bone marrow is of normal overall signal.? ? IMPRESSION:? 1. 3 mm nonobstructing distal common duct stone. 2. No intra or extrahepatic biliary dilatation. 3. Cholelithiasis. 4. Mild hepatic steatosis. 5. No evidence of bowel obstruction. 6. Fat containing ventral abdominal wall hernias.? ? ? Dictated by: Marlen Mullen M.D. on 01/04/2021 at 10:05 ? ? Approved by: Marlen Mullen M.D. on 01/04/2021 at 10:18 ? Critical Care Time Critical Care Time Critical Care Time: Yes Total Critical Care Time: 120 Attestation: The high probability of a clinically significant, sudden or life threatening deterioration of the [GI/CV] system(s) required my full and direct attention, intervention and personal management. The aggregate critical care time was [120] minutes. This time is in addition to time spent performing reported procedures but includes the following: [x] Data Review and interpretation [x] Patient assessment and monitoring of vital signs [x] Documentation [x] Medication orders and management Discharge Plan Departure Patient Disposition: [facility] Clinical Impression: Ascending cholangitis Cholelithiasis Qualifiers: Cholelithiasis location: bile duct Cholangitis presence: with cholangitis Cholangitis acuity: acute Biliary obstruction: with biliary obstruction Qualified Code(s): K80.33 - Calculus of bile duct with acute cholangitis with obstruction Acute pancreatitis Qualifiers: Pancreatitis type: biliary Acute pancreatitis complication: unspecified Qualified Code(s): K85.10 - Biliary acute pancreatitis without necrosis or infection Prescriptions: No Action cholecalciferol (vitamin D3) [Vitamin D3] 1,000 UNIT tablet 2,000 unit PO QDAY Qty: 0 RF: 0 colchicine 0.6 MG capsule 2 tab PO PRN PRN (Reason: Gout) Qty: 0 RF: 0 atorvastatin 10 mg Tablet 10 mg PO DAILY RF: 0 allopurinol 300 mg Tablet 300 mg PRN PRN (Reason: Gout) RF: 0 carbidopa-levodopa 25-100 mg Tablet 2 tab DAILY RF: 0 magnesium 1 tab DAILY RF: 0 pantoprazole 40 mg Tablet,Delayed Release (Dr/Ec) 40 mg PO BID RF: 0 duloxetine 60 mg Capsule,Delayed Release(Dr/Ec) 60 mg PO DAILY RF: 0 Referrals: Hazel Valencia MD [Primary Care Provider] -
[2021-01-04] MEDS: PIPERACILLIN/TAZO 4.5 GM in SODIUM CHLORIDE 0.9% 100 ML 200 ML IV (22:25)
[2021-01-04] MEDS: HYDROMORPHONE 0.5 MG INJ IV (22:25)
[2021-01-04] MEDS: ONDANSETRON 4 MG/2 ML INJ IV (22:26)
[2021-01-04 22:38] LABS: Add Manual Diff / Slide Review NO; Basophils Absolute Auto 100 /uL (0-100); Basophils Percent Auto 0.6 % (0-2); Eosinophils Absolute Auto 0 /uL (0-450); Eosinophils Percent Auto 0.2 % (2-4); Hematocrit 47.8 % (41-53); Hemoglobin 16.2 g/dL (13.5-17.5); Lymphocytes Absolute Auto 1400 /uL (1100-4500); Lymphocytes Percent Auto 8.6 % (25-40); Mean Corpuscular HGB Conc 33.9 % (30-36); Mean Corpuscular Hemoglobin 31.8 PG (26-34); Mean Corpuscular Volume 93.7 fL (80-100); Monocytes Absolute Auto 600 /uL (0-900); Monocytes Percent Auto 4.1 % (3-14); Neutrophils Absolute Auto 13500 /uL (1500-7000); Neutrophils Percent Auto 86.5 % (50-75); Platelet Count 341 X10^3/uL (150-400); Red Cell Distribution Width 15.6 % (11.6-14.8); White Blood Cell Count 15.6 X10^3/uL (4.5-11.0)
[2021-01-04 22:40] LABS: INR 1.2 (0.9-1.3); Prothrombin Time 13.8 SECONDS (10.1-12.7)
[2021-01-04] MEDS: SODIUM CHLORIDE 0.9% 1,000 ML 1000 ML IV (22:40)
[2021-01-04 22:48] LABS: Lactate (Lactic Acid) 2.4 mmol/L (0.7-2.1)
[2021-01-04 22:49] LABS: Alanine Aminotransferase 285 IU/L (<50); Albumin 4.6 g/dL (3.5-5.0); Albumin Globulin Ratio 1.2 (1.0-2.8); Alkaline Phosphatase 438 U/L (38-126); Aspartate Aminotransferase 209 IU/L (17-59); BUN Creatinine Ratio 14.7 (6-22); Blood Urea Nitrogen 17 mg/dL (9-20); Calcium 10.3 mg/dL (8.4-10.2); Carbon Dioxide 26 mmol/L (22-32); Chloride 101 mmol/L (98-107); Estimated Glomerular Filt Rate > 60.0 mL/min (>60); Globulin 3.9 g/dL (1.7-4.1); Glucose 156 mg/dL (80-110); HEMOLYSIS < 15 (0-50); Potassium 3.4 mmol/L (3.4-5.1); Sodium 141 mmol/L (137-145); Total Protein 8.5 g/dL (6.3-8.2)
[2021-01-04 23:08] LABS: Lipase 12637 U/L (23-300)
[2021-01-04] MEDS: VANCOMYCIN 1,500 MG/300 ML PIGGYBACK 200 MG IV (23:14)
[2021-01-04 23:22] LABS: COVID19 - ADMIT (NP swab/PCR) Negative (Negative)
[2021-01-04 23:38] LABS: C-Reactive Protein Quant 3.7 mg/dL (<1.0)
[2021-01-04] MEDS: SODIUM CHLORIDE 0.9% 1,776 ML 592 ML IV (23:49)
[2021-01-05] VITALS (33 sets, daily range): BP systolic 96–218; BP diastolic 50–100; PULSE 73–87; RESP 11–22; O2SAT 94–100
[2021-01-05] MEDS: HYDROMORPHONE 0.5 MG INJ IV (00:15)
[2021-01-05 00:33] LABS: Reflexed Lactate in 2 Hours Y
[2021-01-05 01:07] LABS: Lactate 2HR (Lactic Acid Rflx) < 0.5 mmol/L (0.7-2.1)
[2021-01-05 01:42] LABS: Appearance Urine UA CLEAR; Bilirubin Urine UA 2+ (NEGATIVE); Glucose Urine UA NEGATIVE (Negative); Ketones Urine UA TRACE (NEGATIVE); Leukocyte Esterase Urine UA NEGATIVE (NEGATIVE); Nitrite Urine UA NEGATIVE (Negative); Occult Blood Urine UA NEGATIVE (Negative); Protein Urine UA TRACE (Negative); Specific Gravity Urine UA 1.025 (1.000-1.035); Urobilinogen Urine UA 0.2 E.U./dL (0.2)
[2021-01-05 01:45] LABS: Color Urine UA Amber
[2021-01-05 01:55] LABS: Bacteria Urine None Seen; Culture Indicated Urine Cult Not Indicated; Granular Casts Urine 0-1/LPF; Ictotest Urine Positive (Negative); Mucus Urine 1+ (Negative); RBC Urine None Seen (0-5/HPF); WBC Urine None Seen (0-5/HPF)
--- NOTE | 2021-01-05 03:21 | DI.US.S_ITS ---
PROCEDURE: US ABDOMEN LIMITED INDICATIONS: worsening pain, known stone TECHNIQUE: Real-time focused scanning was performed of the abdomen, with image documentation. COMPARISON: None. FINDINGS: Liver is normal in size. Liver has diffusely increased echogenicity. No focal hepatic mass lesions. Small stones and sludge noted in the gallbladder. Gallbladder wall is slightly thickened to 3.8 millimeters. No pericholecystic fluid. No sonographic Antunez sign reported. Biliary tree is nondilated. Common bile duct measures 5.9 millimeters. IMPRESSION: 1. Cholelithiasis. There is mild gallbladder wall thickening. Finding is nonspecific may be related to hepatocellular disease versus acute cholecystitis. If there is continued clinical concern for cholecystitis, a nuclear medicine HIDA scan should be considered for further evaluation. 2. Echogenic liver. Finding typically represents fatty infiltration; however, finding is nonspecific and correlation with clinical and laboratory findings is recommended to exclude other etiologies including hepatic cirrhosis. Dictated by: Ivelisse Hernandez MD, PhD on 01/05/2021 at 8:23 Approved by: Ivelisse Hernandez MD, PhD on 01/05/2021 at 8:25
[2021-01-05] MEDS: PIPERACILLIN/TAZO 3.375 GM in SODIUM CHLORIDE 0.9% 100 ML 25 ML IV (05:03)
[2021-01-05] MEDS: SODIUM CHLORIDE 0.9% 1,000 ML 125 ML IV (05:05)
== END 2021-01-05 06:08 | disposition short-term general hospital (02) ==
PROVIDERS: Emergency Provider Emergency Medicine; PCP Student in an Organized Health Care Education/Training Program
DX: K80.33 Calculus of bile duct with acute cholangitis with obstruction (principal); K85.10 Biliary acute pancreatitis without necrosis or infection; Z20.822 Contact with and (suspected) exposure to COVID-19; R10.11 Right upper quadrant pain
CPT/HCPCS: 36415; 74181; 76705; 80053; 81001; 83605; 83690; 85025; 85610; 86140; 87040; 87635; 93005; 93010; 96365; 96366; 96367; 96375; 96376; 99285; 99291; 99292; C9803; J1170; J2405; J2543

== ENCOUNTER → 2021-10-18 16:25 | Outpatient (CLI) | payer MEDICARE, OTHER, SELFPAY ==
[2021-10-18 17:17] LABS: Add Manual Diff / Slide Review NO; Basophils Absolute Auto 100 /uL (0-100); Basophils Percent Auto 0.8 % (0-2); Eosinophils Absolute Auto 100 /uL (0-450); Eosinophils Percent Auto 1.5 % (2-4); Hematocrit 43.5 % (41-53); Hemoglobin 15.3 g/dL (13.5-17.5); Lymphocytes Absolute Auto 2300 /uL (1100-4500); Lymphocytes Percent Auto 27.2 % (25-40); Mean Corpuscular HGB Conc 35.1 % (30-36); Mean Corpuscular Hemoglobin 32.6 PG (26-34); Mean Corpuscular Volume 92.8 fL (80-100); Monocytes Absolute Auto 500 /uL (0-900); Monocytes Percent Auto 6.3 % (3-14); Neutrophils Absolute Auto 5400 /uL (1500-7000); Neutrophils Percent Auto 64.2 % (50-75); Platelet Count 209 X10^3/uL (150-400); Red Blood Cell Count 4.69 X10^6/uL (4.5-5.9); Red Cell Distribution Width 14.2 % (11.6-14.8); White Blood Cell Count 8.4 X10^3/uL (4.5-11.0)
[2021-10-18 17:26] LABS: Alanine Aminotransferase 26 IU/L (<50); Albumin 4.6 g/dL (3.5-5.0); Albumin Globulin Ratio 1.5 (1.0-2.8); Alkaline Phosphatase 76 U/L (38-126); Amylase 75 U/L (30-110); Aspartate Aminotransferase 29 IU/L (17-59); BUN Creatinine Ratio 15.9 (6-22); Bilirubin Total 0.8 mg/dL (0.2-1.3); Blood Urea Nitrogen 20 mg/dL (9-20); C-Reactive Protein Quant 2.2 mg/dL (<1.0); Calcium 9.7 mg/dL (8.4-10.2); Carbon Dioxide 23 mmol/L (22-32); Chloride 105 mmol/L (98-107); Estimated Glomerular Filt Rate 59 mL/min (>60); Glucose 114 mg/dL (80-110); HEMOLYSIS < 15 (0-50); Lipase 37 U/L (23-300); Potassium 3.9 mmol/L (3.4-5.1); Sodium 138 mmol/L (137-145); Total Protein 7.6 g/dL (6.3-8.2)
[2021-10-18 18:12] LABS: Erythrocyte Sedimentation Rate 38 MM/HR (0-15)
== END ==
PROVIDERS: PCP Family Medicine; Referring Provider Family Medicine; Visit Provider Family Medicine
DX: R10.9 Unspecified abdominal pain (principal)
CPT/HCPCS: 36415; 80053; 82150; 83690; 85025; 85651; 86140

== ENCOUNTER → 2021-10-22 09:42 | Outpatient (CLI) | payer MEDICARE, OTHER, SELFPAY ==
--- NOTE | 2021-10-22 | DI.CT.S_ITS ---
PROCEDURE: CT ABDOMEN PELVIS W CON INDICATIONS: ABDOMINAL PAIN TECHNIQUE: After the administration of oral and intravenous contrast, axial sections were acquired from the lung bases to the pubic symphysis. Coronal and sagittal reformats were performed. For radiation dose reduction, the following was used: automated exposure control, adjustment of mA and/or kV according to patient size. COMPARISON:[facility], CT, CT ABDOMEN PELVIS W CON, 12/23/2020, 21:14. FINDINGS: Image quality: Excellent. Lung bases: Mild atelectasis. Heart: Valvular annular and coronary artery calcifications. ABDOMEN: Liver: Subcentimeter lesions are too small to characterize, stable. Gallbladder: Absent Biliary ducts: Unremarkable. Pancreas: Unremarkable. Spleen: Unremarkable. Adrenal Glands: Unremarkable. Kidneys and Ureters: Mild bilateral atrophy. No hydronephrosis. Stomach and Bowel: Small epiphrenic diverticulum, hiatal hernia, and duodenal diverticulum. No bowel obstruction. Colonic diverticula. Peritoneum: No abnormal intraperitoneal fluid. No free air. Nonspecific adarsh mesentery. This is stable. Ventral Wall: Multiple fat and omentum containing ventral hernias (5/56). Abdominal Nodes: No retroperitoneal or mesenteric adenopathy by size criteria. Vessels: Mild atherosclerotic calcifications. PELVIS: Pelvic Organs: Unremarkable. Bladder: Unremarkable. Pelvic Nodes: No enlarged lymph nodes. Miscellaneous: Bilateral fat containing inguinal hernias. Bones: Scattered degenerative changes. No suspicious osseous lesion. IMPRESSION: No acute abdominal pelvic pathology. Fat and omentum containing ventral hernias measuring about 7 mm at the neck (5/56). Mildly congested omentum can sometimes cause pain. Bilateral fat containing inguinal hernias. Other incidental findings outlined above. Dictated by: Asael Seo M.D. on 10/22/2021 at 14:06 Approved by: Asael Seo M.D. on 10/22/2021 at 14:14
== END ==
PROVIDERS: PCP Family Medicine; Referring Provider Family Medicine; Visit Provider Family Medicine
DX: K40.20 Bilateral inguinal hernia, without obstruction or gangrene, not specified as recurrent (principal); R10.9 Unspecified abdominal pain
CPT/HCPCS: 74177; Q9967

== ENCOUNTER 2022-02-11 15:39 | Observation (INO) | payer MEDICARE, OTHER, SELFPAY ==
[2022-02-11 15:55] VITALS: BP 187/106; PULSE 67; RESP 18; TEMP 36.6; O2SAT 96
--- NOTE | 2022-02-11 16:31 | DI.CT.S_ITS ---
PROCEDURE: CT ABDOMEN PELVIS W CON INDICATIONS: fall, rigid abd, pain and vomiting TECHNIQUE: After the administration of oral and IV contrast, axial sections were acquired from the lung bases to the pubic symphysis. Coronal and sagittal reformats were performed. For radiation dose reduction, the following was used: automated exposure control, adjustment of mA and/or kV according to patient size. COMPARISON: [facility], CT, CT ABDOMEN PELVIS W CON, 10/22/2021, 12:06. FINDINGS: Image quality: Excellent. Lung bases: Unremarkable. Heart: No significant findings. ABDOMEN: Liver: The liver is enlarged measuring 18.7 cm with diffuse steatosis. Gallbladder: Unremarkable. Biliary ducts: Unremarkable. Pancreas: Unremarkable. Spleen: Unremarkable. Adrenal Glands: Unremarkable. Kidneys and Ureters: Unremarkable. Stomach and Bowel: Previous infra umbilical fat containing hernia now contains a loop of small. There is proximal dilation as well as distal collapse. No evidence strangulation or incarceration. Diverticular present without inflammatory change. Umbilical fat containing ventral hernia is unchanged. Peritoneum: No abnormal intraperitoneal fluid. No free air. Ventral Wall: Prominent fat containing ventral hernia. Abdominal Nodes: No retroperitoneal or mesenteric adenopathy by size criteria. Vessels: Aorta and inferior vena cava are normal in size. PELVIS: Pelvic Organs: Unremarkable. Bladder: Unremarkable. Pelvic Nodes: No enlarged lymph nodes. Miscellaneous: Bilateral containing inguinal hernias. Bones: Multilevel degenerative changes are present. IMPRESSION: Interval development of bowel containing infraumbilical hernia with proximal mild partial small bowel obstruction with distal collapse. No evidence of incarceration or strangulation. Diverticulosis. Dictated by: Liyah Patel M.D. on 02/11/2022 at 18:10 Approved by: Liyah Patel M.D. on 02/11/2022 at 18:13
--- NOTE | 2022-02-11 16:32 | DI.CT.S_ITS ---
PROCEDURE: CT HEAD/BRAIN WO CON INDICATIONS: fall TECHNIQUE: Noncontrast 4.5 mm thick angled axial sections acquired from the foramen magnum to the vertex, with coronal and sagittal reformats. For radiation dose reduction, the following was used: automated exposure control, adjustment of mA and/or kV according to patient size. COMPARISON: None. FINDINGS: Image quality: Excellent. CSF spaces: Basal cisterns are patent. No extra-axial fluid collections. The ventricles are symmetric in size and shape. Brain: No intracranial bleeds or masses. There is cerebral volume loss for age, with resultant ventricular and sulcal prominence. There are periventricular and deep white matter chronic small vessel ischemic changes. There is intracranial internal carotid artery atherosclerosis. Skull and face: Calvarium and visualized facial bones appear intact, without suspicious lesions. Sinuses: Visualized sinuses demonstrates scattered sinus mucosal thickening. IMPRESSION: 1. No acute intracranial process. 2. Moderate atrophy and chronic microvascular ischemic changes. Dictated by: Liyah Patel M.D. on 02/11/2022 at 17:49 Approved by: Liyah Patel M.D. on 02/11/2022 at 17:52
[2022-02-11 17:00] VITALS: BP 162/88; PULSE 94; RESP 22; O2SAT 94
[2022-02-11 17:00] LABS: Add Manual Diff / Slide Review NO; Basophils Absolute Auto 100 /uL (0-100); Basophils Percent Auto 0.6 % (0-2); Eosinophils Absolute Auto 0 /uL (0-450); Eosinophils Percent Auto 0.5 % (2-4); Hematocrit 48.2 % (41-53); Hemoglobin 16.3 g/dL (13.5-17.5); Lymphocytes Absolute Auto 1700 /uL (1100-4500); Lymphocytes Percent Auto 18.1 % (25-40); Mean Corpuscular HGB Conc 33.8 % (30-36); Mean Corpuscular Volume 94.7 fL (80-100); Monocytes Absolute Auto 500 /uL (0-900); Monocytes Percent Auto 5.7 % (3-14); Neutrophils Absolute Auto 7000 /uL (1500-7000); Neutrophils Percent Auto 75.1 % (50-75); Platelet Count 219 X10^3/uL (150-400); Red Blood Cell Count 5.09 X10^6/uL (4.5-5.9); Red Cell Distribution Width 15.2 % (11.6-14.8); White Blood Cell Count 9.3 X10^3/uL (4.5-11.0)
[2022-02-11 17:04] LABS: Alanine Aminotransferase 37 IU/L (<50); Albumin 4.5 g/dL (3.5-5.0); Albumin Globulin Ratio 1.4 (1.0-2.8); Alkaline Phosphatase 79 U/L (38-126); Aspartate Aminotransferase 31 IU/L (17-59); BUN Creatinine Ratio 17.4 (6-22); Bilirubin Total 1.1 mg/dL (0.2-1.3); Blood Urea Nitrogen 21 mg/dL (9-20); Calcium 9.7 mg/dL (8.4-10.2); Carbon Dioxide 26 mmol/L (22-32); Chloride 100 mmol/L (98-107); Estimated Glomerular Filt Rate > 60 mL/min (>60); Globulin 3.3 g/dL (1.7-4.1); Glucose 111 mg/dL (80-110); HEMOLYSIS < 15 (0-50); Lipase 33 U/L (23-300); Potassium 3.9 mmol/L (3.4-5.1); Sodium 137 mmol/L (137-145); Total Protein 7.8 g/dL (6.3-8.2)
[2022-02-11] MEDS: MORPHINE 4 MG/ML INJ IV (17:53)
[2022-02-11] MEDS: ONDANSETRON 4 MG/2 ML INJ IV (17:53)
--- NOTE | 2022-02-11 18:49 | ED.GENADULT ---
HPI - General Adult General Chief complaint: Abdominal Pain Stated complaint: Fell, Thinks busted hernia Time Seen by Provider: 02/11/22 17:50 Source: patient Mode of arrival: Ambulatory History of Present Illness HPI narrative: 76-year-old gentleman with history of Parkinson's disease, hyperlipidemia, gout has an umbilical hernia that does not typically bother him until today. Outside raking leaves slipped on leaves twisted turned did not actually fall felt a tearing pulling feeling around the umbilical hernia that has progressively gotten worse. Began having increasing pain and vomited approximately an hour later. Has vomited again this afternoon comes into the emergency room for further evaluation. He complains of continued Susan abdominal pain rated 10/10 has not been passing gas did not have a bowel movement today. He denies recent fevers, cough, chills, palpitations, abdominal pain, vomiting or diarrhea. He is had no recent headaches no recent changes to medications. He is not anticoagulated. His last meal was 7:00 a.m. this morning. Related Data Home Medications Medication Instructions Recorded Confirmed cholecalciferol (vitamin D3) 25 2,000 unit PO QDAY ##0 06/14/17 09/22/21 mcg (1,000 unit) tablet (Vitamin D3) colchicine 0.6 mg capsule 2 tab PO PRN PRN Gout ##0 06/14/17 02/11/22 allopurinol 300 mg tablet 300 mg DAILY 12/25/18 02/11/22 atorvastatin 10 mg tablet 10 mg PO DAILY 12/25/18 02/11/22 carbidopa 25 mg-levodopa 100 mg 2 tab DAILY 12/25/18 02/11/22 tablet magnesium 1 tab DAILY 12/25/18 09/22/21 pantoprazole 40 mg tablet,delayed 40 mg PO BID 09/25/19 02/11/22 release Allergies Allergy/AdvReac Type Severity Reaction Status Date / Time No Known Drug Allergies Allergy Verified 02/11/22 15:57 Review of Systems Review of Systems Narrative: Remainder of complete review of systems is otherwise unremarkable except for that included in the HPI. Patient History Medical History (Updated 02/11/22 @ 19:12 by Luz Maddox MD) Gout Hemolytic anemia Hyperlipidemia Parkinsons Stable angina Surgical History (Updated 02/11/22 @ 19:11 by Liss Cassidy MD) History of appendectomy Hx laparoscopic cholecystectomy Social History Smoking Status: Former smoker Smoking Status: Former smoker alcohol intake frequency: 0-2 drinks per day Substance Use Type: does not use Exam Initial Vital Signs Initial Vital Signs: Vital Signs Temperature 98 F 02/11/22 15:55 Pulse Rate 67 02/11/22 15:55 Respiratory Rate 18 02/11/22 15:55 Blood Pressure 187/106 H 02/11/22 15:55 Pulse Oximetry 96 02/11/22 15:55 Oxygen Delivery Method 02/11/22 15:55 General: Healthy appearing, in no mild distress. Able to give a complete and coherent history. Well-nourished well-developed HEENT: Moist mucous membranes, normal sclera with reactive pupils, Neck: No JVD, supple Respiratory: Lungs are clear to auscultation, no wheezing no rales no rhonchi. Full and symmetrical air movement Cardiac: Regular rate and rhythm no murmurs no bruits Abdomen: Slightly distended, firm tender nonreducible abdominal hernia without erythema or drainage. No bowel tones. No flank pain Skin: Warm and dry, no rashes Neurologic: Grossly neurologically intact with no obvious asymmetries or abnormalities Extremities: No trauma, well perfused Psych: Cooperative, appropriate insight and affect Course Orders Ordered: ED Orders 02/11/22 15:59 EKG-12 Lead Stat 02/11/22 16:31 CT abdomen pelvis w con Stat 02/11/22 16:32 CT head/brain wo con Stat 02/11/22 16:35 Complete Blood Count AUTO DIFF Stat Comprehensive Metabolic Panel Stat Lipase Stat 02/11/22 18:47 COVID19 -Nasal RAPID/Pre-Proc Stat 02/11/22 18:56 Education, smoking cessation ONGOING Acetaminophen (Acetaminophen 325 Mg Tablet) 650 mg PO Q6H OLIVIA Carbidopa/Levodopa (Carbidopa-Levodopa 25/100 Tablet) 2 each PO DAILY [facility] Celecoxib (Celecoxib 100 Mg Capsule) 200 mg PO BID [facility] Lactated Ringer's (Lactated Ringers) 1,000 mls @ 120 mls/hr IV CONT OLIVIA Naloxone HCl (Naloxone 0.4 Mg/Ml Vial) 0.2 mg IV Q2MIN PRN PRN Reason: Opiate Reversal Pantoprazole Sodium (Pantoprazole Dr 40 Mg Tablet) 40 mg PO BID OLIVIA Discontinued Medications Enoxaparin Sodium (Enoxaparin 30 Mg/0.3 Ml Syringe) 30 mg SUBCUT NOW ONE Stop: 02/11/22 19:00 Morphine Sulfate (Morphine 4 Mg/Ml Inj) 4 mg IV NOW ONE Stop: 02/11/22 17:51 Last Admin: 02/11/22 17:53 Dose: 4 mg Documented By: NR Ondansetron HCl (Ondansetron 4 Mg/2 Ml Inj) 4 mg IV NOW ONE Stop: 02/11/22 15:59 Last Admin: 02/11/22 17:53 Dose: 4 mg Documented By: NR Oxycodone HCl (Oxycodone Ir 5 Mg Tablet) 10 mg PO NOW ONE Stop: 02/11/22 18:56 Vital Signs Vital signs: Vital Signs - 8 hr 02/11/22 15:55 02/11/22 17:00 02/11/22 19:00 Temperature 98 F Pulse Rate 67 94 H 84 Respiratory Rate 18 22 22 Blood Pressure 187/106 H 162/88 H 168/97 H Pulse Oximetry 96 94 95 Oxygen Delivery Method Room Air Room Air Medical Decision Making Lab Data Result diagrams: 02/11/22 16:35 02/11/22 16:35 Labs: Lab Results 02/11/22 02/11/22 02/11/22 Range/Units 16:35 16:35 18:44 WBC 9.3 (4.5-11.0) X10^3/uL RBC 5.09 (4.5-5.9) X10^6/uL Hgb 16.3 (13.5-17.5) g/dL Hct 48.2 (41-53) % MCV 94.7 (80-100) fL MCH 32.0 (26-34) PG MCHC 33.8 (30-36) % RDW 15.2 H (11.6-14.8) % Plt Count 219 (150-400) X10^3/uL Neut % (Auto) 75.1 H (50-75) % Lymph % (Auto) 18.1 L (25-40) % [place] % (Auto) 5.7 (3-14) % Eos % (Auto) 0.5 L (2-4) % Baso % (Auto) 0.6 (0-2) % Neut # (Auto) 7000 (7805-1053) /uL Lymph # (Auto) 1700 (3399-2580) /uL [place] # (Auto) 500 (0-900) /uL Eos # (Auto) 0 (0-450) /uL Baso # (Auto) 100 (0-100) /uL Sodium 137 (137-145) mmol/L Potassium 3.9 (3.4-5.1) mmol/L Chloride 100 (98-107) mmol/L Carbon Dioxide 26 (22-32) mmol/L BUN 21 H (9-20) mg/dL Creatinine 1.21 (0.66-1.25) mg/dL Estimated GFR > 60 (>60) mL/min BUN/Creatinine Ratio 17.4 (6-22) Glucose 111 H (80-110) mg/dL Calcium 9.7 (8.4-10.2) mg/dL Total Bilirubin 1.1 (0.2-1.3) mg/dL AST 31 (17-59) IU/L ALT 37 (<50) IU/L Alkaline Phosphatase 79 (38-126) U/L Total Protein 7.8 (6.3-8.2) g/dL Albumin 4.5 (3.5-5.0) g/dL Globulin 3.3 (1.7-4.1) g/dL Albumin/Globulin Ratio 1.4 (1.0-2.8) Lipase 33 (23-300) U/L SARS-CoV-2 (PCR) Negative (Negative) Imaging Data CT scan - abdomen/pelvis: Radiologist's Impression: FINDINGS:? Image quality:? Excellent.? ? Lung bases:? Unremarkable.? ? Heart:? No significant findings. ? ? ABDOMEN: Liver:? The liver is enlarged measuring 18.7 cm with diffuse steatosis. Gallbladder:? Unremarkable. Biliary ducts:? Unremarkable.? ? Pancreas:? Unremarkable.? ? Spleen:? Unremarkable.? ? Adrenal Glands:? Unremarkable.? ? Kidneys and Ureters:? Unremarkable.? ? ? Stomach and Bowel:? Previous infra umbilical fat containing hernia now contains a loop of small.? There is proximal dilation as well as distal collapse.? No evidence strangulation or incarceration.? Diverticular present without inflammatory change.? Umbilical fat containing ventral hernia is unchanged. Peritoneum:? No abnormal intraperitoneal fluid.? No free air.? ? Ventral Wall: ? Prominent fat containing ventral hernia.? Abdominal Nodes:? No retroperitoneal or mesenteric adenopathy by size criteria.? Vessels:? Aorta and inferior vena cava are normal in size.? ? PELVIS: Pelvic Organs:? Unremarkable.? ? Bladder:? Unremarkable.? ? Pelvic Nodes: No enlarged lymph nodes.? Miscellaneous:? Bilateral containing inguinal hernias. ? Bones:? Multilevel degenerative changes are present. ? ? IMPRESSION:? ? Interval development of bowel containing infraumbilical hernia with proximal mild partial small bowel obstruction with distal collapse.? No evidence of incarceration or strangulation. ? Diverticulosis.? ? Dictated by: Liyah Patel M.D. on 02/11/2022 at 18:10 ? ? CT scan - head: Radiologist's Impression: FINDINGS:? Image quality:? Excellent.? ? CSF spaces:? Basal cisterns are patent.? No extra-axial fluid collections.? The ventricles are symmetric in size and shape.? ? Brain:? No intracranial bleeds or masses.? There is cerebral volume loss for age, with resultant ventricular and sulcal prominence.? There are periventricular and deep white matter chronic small vessel ischemic changes.? There is intracranial internal carotid artery atherosclerosis.? ? Skull and face:? Calvarium and visualized facial bones appear intact, without suspicious lesions.? ? Sinuses:? Visualized sinuses demonstrates scattered sinus mucosal thickening. ? IMPRESSION:? ? 1. No acute intracranial process. ? 2. Moderate atrophy and chronic microvascular ischemic changes. ? ? ? Dictated by: Liyah Patel M.D. on 02/11/2022 at 17:49 ? ? MDM Narrative Medical decision making narrative: 645pm care is reviewed with Dr. Cassidy, general surgery. She will review CT scan to see if surgical intervention is warranted for this evening or whether we observe him overnight and re-evaluate in the morning. COVID swab is currently pending. Maintenance fluids were started. Pain is currently adequately controlled. Care is reviewed with Dr. Cassidy. She is reviewed the CT scan. At this point with no evidence of acute strangulation surgery will be scheduled for tomorrow. Patient will be admitted overnight for continued pain control, kept NPO orders are written. Findings reviewed with patient and his . Questions are answered. His will bring in all of his medication bottles to confirm doses tomorrow morning. There safe for transfer to the floor Discharge Plan Departure Patient Disposition: Admitted as Observation Clinical Impression: Incarcerated umbilical hernia Prescriptions: No Action cholecalciferol (vitamin D3) [Vitamin D3] 1,000 UNIT tablet 2,000 unit PO QDAY Qty: 0 colchicine 0.6 MG capsule 2 tab PO PRN PRN (Reason: Gout) Qty: 0 atorvastatin 10 mg Tablet 10 mg PO DAILY allopurinol 300 mg Tablet 300 mg DAILY carbidopa-levodopa 25-100 mg Tablet 2 tab DAILY magnesium 1 tab DAILY pantoprazole 40 mg Tablet,Delayed Release (Dr/Ec) 40 mg PO BID Referrals: Jason Mason MD [Primary Care Provider] -
[2022-02-11 19:00] VITALS: BP 168/97; PULSE 84; RESP 22; O2SAT 95
[2022-02-11 19:04] LABS: COVID19 -Nasal RAPID Negative (Negative)
[2022-02-11] MEDS: LACTATED RINGERS 1,000 ML 120 ML IV (20:24)
[2022-02-11] MEDS: OXYCODONE IR 5 MG TABLET 10 MG PO (21:53)
--- NOTE | 2022-02-11 22:40 | PC.NURSE ---
Hospital bed placed in room for comfort. Patient able to transfer onto hospital bed independently.
[2022-02-11] MEDS: ENOXAPARIN 30 MG/0.3 ML SYRINGE SUBCUT (22:43)
[2022-02-12] VITALS (7 sets, daily range): BP systolic 141–185; BP diastolic 85–115; PULSE 94–105; RESP 16–24; TEMP 36.6–37.3; O2SAT 94–98
[2022-02-12] MEDS: ONDANSETRON 4 MG/2 ML INJ IV ×2 (02:35→06:01)
[2022-02-12] MEDS: LACTATED RINGERS 1,000 ML 120 ML IV ×2 (04:46→09:00)
--- NOTE | 2022-02-12 09:05 | P.HP_ITS ---
History of Present Illness History of Present Illness Date Patient Seen: 02/12/22 Time Patient Seen: 09:05 Date of Onset of Symptoms: 02/11/22 Chief complaint: Fell, Thinks busted hernia Narrative: Sudden onset umbilical pain with lifting. Followed by nausea and emesis. Hard knot in the area of known hernia. S/p lap terrell. Patient History Medical History Gout Hemolytic anemia Hyperlipidemia Parkinsons Stable angina Surgical History History of appendectomy Hx laparoscopic cholecystectomy Family & Social History Safety & Behavioral: Feels Safe in Current Yes Environment Been Physically Hurt or No Threatened By a Person Tobacco & Substance use: Smoking Status Former smoker alcohol intake frequency 0-2 drinks per day Substance Use Type does not use Meds Home Medications and Allergies Home Medications Medication Instructions Recorded Confirmed Type cholecalciferol (vitamin D3) 25 2,000 unit PO QDAY ##0 06/14/17 09/22/21 History mcg (1,000 unit) tablet (Vitamin D3) colchicine 0.6 mg capsule 2 tab PO PRN PRN Gout ##0 06/14/17 02/11/22 History allopurinol 300 mg tablet 300 mg DAILY 12/25/18 02/11/22 History atorvastatin 10 mg tablet 10 mg PO DAILY 12/25/18 02/11/22 History carbidopa 25 mg-levodopa 100 mg 2 tab DAILY 12/25/18 02/11/22 History tablet magnesium 1 tab DAILY 12/25/18 09/22/21 History pantoprazole 40 mg tablet,delayed 40 mg PO BID 09/25/19 02/11/22 History release Allergies Allergy/AdvReac Type Severity Reaction Status Date / Time No Known Drug Allergies Allergy Verified 02/11/22 15:57 Review of Systems Review of Systems ROS: Yes All systems reviewed with the patient and are negative except as otherwise documented Exam Vital Signs (past 8 hours): - 02/12/22 08:33 Pulse Rate 95 H Respiratory Rate 18 Blood Pressure 167/102 H Pulse Oximetry 95 Oxygen Delivery Method Room Air Oxygen Delivery Method Room Air Const General: cooperative and comfortable HENMT Head: normal to inspection, normocephalic and atraumatic Ears: hearing grossly impaired Face and sinus: normal facial exam Eyes Eyelids: eyelids normal Sclera: sclerae normal Neck Neck: trachea midline Chest Chest: normal inspection of the chest Resp Effort & Inspection: normal respiratory effort and able to speak in complete sentences Cardio Rate: regular rate Rhythm: regular rhythm GI Inspection: obesity Palpation: soft and hernia (non reduceable hernia in umbilical area) Skin General: no rashes or lesions noted and atrophy Neuro General: patient alert, patient awake and patient oriented x3 Cognition: normal cognition Extrem General: normal to inspection Psych Appearance: grossly normal Mental Status: mental status grossly normal Judgment: judgment good Objective Labs Result Diagrams: 02/11/22 16:35 02/11/22 16:35 Labs: Laboratory Results - last 24 hr 02/11/22 02/11/22 02/11/22 16:35 16:35 18:44 WBC 9.3 RBC 5.09 Hgb 16.3 Hct 48.2 MCV 94.7 MCH 32.0 MCHC 33.8 RDW 15.2 H Plt Count 219 Neut % (Auto) 75.1 H Lymph % (Auto) 18.1 L [place] % (Auto) 5.7 Eos % (Auto) 0.5 L Baso % (Auto) 0.6 Neut # (Auto) 7000 Lymph # (Auto) 1700 [place] # (Auto) 500 Eos # (Auto) 0 Baso # (Auto) 100 Sodium 137 Potassium 3.9 Chloride 100 Carbon Dioxide 26 BUN 21 H Creatinine 1.21 Estimated GFR > 60 BUN/Creatinine Ratio 17.4 Glucose 111 H Calcium 9.7 Total Bilirubin 1.1 AST 31 ALT 37 Alkaline Phosphatase 79 Total Protein 7.8 Albumin 4.5 Globulin 3.3 Albumin/Globulin Ratio 1.4 Lipase 33 SARS-CoV-2 (PCR) Negative Assessment & Plan Assessment & Plan narrative: incarcerated umbilical hernia with associated SBO, no ischemia OR for umbilical/incisional hernia repair with mesh. Discussed with patient the higher risk of recurrence given his size. COVID-19 COVID-19 status: Negative Time Spent With Patient Time with patient: less than 30 minutes Critical Care time: I spent a total of [] minutes of critical care time on this patient's care today; this time is exclusive of procedural time.
[2022-02-12] MEDS: CEFAZOLIN 2 GM/100 ML PREMIX 100 ML IV (09:48)
--- NOTE | 2022-02-12 09:50 | SUR.OPER ---
Supine on padded OR bed, head on pillow, arms secured on padded arm boards at <90 degrees abduction, legs uncrossed, safety belt at thigh,
[2022-02-12] MEDS: BUPIVACAINE 0.25% (PF) 30 ML, EPINEPHrine 0.15 MG INJ (10:15)
--- NOTE | 2022-02-12 10:25 | PM.OP.1 ---
Operative Date/Time/Diagnoses Date of procedure: 02/12/22 Time of procedure: 10:25 Pre-op diagnosis: Incarcerated umbilical hernia Post-op diagnosis: same Procedure & Clinicians Procedure: Umbilical hernia repair with out mesh Same procedure as scheduled: Yes Indications: Incarcerated umbilical hernia with associated small-bowel obstruction Surgeon: Liss Cassidy Click Yes if Unassisted: Yes Anesthesia Type: General and Local Operative Notes Findings: Small loop of small bowel within the hernia itself. Isolated small spots of purple ischemic areas that had good return of blood flow. Majority of the small bowel was within normal limits with regards to blood flow. Closure Type: primary Specimen(s): none sent Estimated Blood Loss (mL): 10 Blood products transfused: none Procedure in detail: Preop diagnosis: Incarcerated umbilical hernia with associated small-bowel obstruction Postop diagnosis: Same Operative procedure: Primary repair of incarcerated umbilical hernia associated with small bowel obstruction Surgeon: Eda Cassidy MD Anesthetic: General with ET tube intubation with local Findings: Omentum and a knuckle of small bowel within the hernia sac. Small bowel viable Procedure: Patient placed in a supine position. Prepped and draped in sterile fashion to appose his abdomen. Supraumbilical incision was created the hernia was isolated and due to the tense tissues I chose to extend the defect superiorly with a curved Ceja. Amputated a small portion of the omentum and returned the small bowel and remainder of the omentum into the belly. Hemostasis achieved electrocautery. Defect was approximately 0.5 cm in maximum diameter. Closed vertically with interrupted 2 0 Ethibond. Skin was closed a running 4-0 Vicryl. Steri-Strips and sterile dressings were placed. Patient awakened, extubated, taken to recovery room in stable condition with needle, instrument, sponge counts correct. Specimen: None Blood loss: 10 mL
[2022-02-12] MEDS: ALBUTEROL 2.5 MG/3 ML NEB (ADULT) INH (10:35)
[2022-02-12] MEDS: HYDROMORPHONE 2 MG INJ IV (10:47)
== END 2022-02-12 11:35 | disposition home or self-care (01) ==
LOC: ED 19:12 → AC 19:18
PROVIDERS: Emergency Medicine; Admitting Provider Surgery; Emergency Provider Emergency Medicine; PCP Family Medicine; Referring Provider Emergency Medicine; Visit Provider Surgery
PROC: (CPT 49587; principal; 2022-02-12 12:00)
DX: K42.0 Umbilical hernia with obstruction, without gangrene (principal); W18.49XA Other slipping, tripping and stumbling without falling, initial encounter; Y93.H1 Activity, digging, shoveling and raking; G20 Parkinson's disease; E78.5 Hyperlipidemia, unspecified; K56.699 Other intestinal obstruction unspecified as to partial versus complete obstruction; Z20.822 Contact with and (suspected) exposure to COVID-19; R03.0 Elevated blood-pressure reading, without diagnosis of hypertension
CPT/HCPCS: 49587; 36415; 70450; 74177; 80053; 83690; 85025; 87635; 93005; 93010; 96361; 96372; 96374; 96375; 96376; 99284; C9803; G0378; J0171; J0330; J0690; J1100; J1170; J1650; J2250; J2270; J2405; J2704; J3010; J7613; Q9967

== ENCOUNTER → 2022-11-01 15:49 | Outpatient (CLI) | payer MEDICARE, OTHER, SELFPAY ==
--- NOTE | 2022-11-01 | DI.MRI.S_ITS ---
PROCEDURE: MR LUMBAR SPINE WO CON INDICATIONS: Radiculopathy, lumbar region TECHNIQUE: Noncontrast sagittal T1 spin echo and T2 fast echo, sagittal STIR, and T2 fast spin echo through the lumbar spine. In cases with scoliosis, additional coronal T2 fast spin echo may be performed. COMPARISON: [facility], MR, MR LUMBAR SPINE WO CON, 05/21/2020, 13:26. FINDINGS: Image quality: Excellent. Alignment and Curvature: There is normal bony alignment. Bone Marrow: Chronic degenerative endplate changes Spinal Cord: Conus medullaris terminates at the L1 level. Visualized cord demonstrates normal signal and size. Paraspinous Soft Tissues: No paravertebral masses. T12-L1: Disc space narrowing with circumferential disc bulge. No central or foraminal stenosis. L1-L2: Disc space narrowing with posterior asymmetric right disc bulge effaces the right lateral recess. Mild central stenosis. Moderate right no left foraminal stenosis L2-L3: Disc space narrowing with posterior disc bulge and hypertrophic facet joints combines with dorsal epidural fat result in moderate central stenosis. Moderate bilateral foraminal stenosis L3-L4: Disc height is maintained. Hypertrophic facet joints and disc bulge combined result in moderate to severe central stenosis. Mild bilateral foraminal stenosis greater on the right. L4-L5: Disc height is maintained. Hypertrophic facet joints and circumferential disc bulge combined result in moderate to severe central stenosis. Mild bilateral foraminal stenosis greater on the right. L5-S1: Disc height is maintained. Hypertrophic facet joints present. No central stenosis. No foraminal stenosis. IMPRESSION: Multilevel degenerative disc disease and arthropathy results in varying degrees of central and foraminal stenosis including moderate to severe central stenosis L4-5 Approved by: Evan Estrada M.D. on 11/02/2022 at 11:52
== END ==
PROVIDERS: PCP Family Medicine; Referring Provider Physical Medicine & Rehabilitation Pain Medicine; Visit Provider Physical Medicine & Rehabilitation Pain Medicine
DX: M51.16 Intervertebral disc disorders with radiculopathy, lumbar region (principal); M47.26 Other spondylosis with radiculopathy, lumbar region; M47.27 Other spondylosis with radiculopathy, lumbosacral region; M48.061 Spinal stenosis, lumbar region without neurogenic claudication
CPT/HCPCS: 72148

== ENCOUNTER → 2023-03-06 12:21 | Outpatient (CLI) | payer MEDICARE, OTHER, SELFPAY ==
--- NOTE | 2023-03-06 | DI.RAD.S_ITS ---
PROCEDURE: XR FOOT LT MIN 3V INDICATIONS: CHRONIC LEFT FOOT PAIN TECHNIQUE: 3 views of the foot were acquired. COMPARISON: None. FINDINGS: Bones: No fractures or dislocations. No suspicious bony lesions. Diffuse moderate to severe IP degenerative narrowing most severe at the DIP joints are present. No distinct erosions. Soft tissues: No tibiotalar joint effusion. Achilles tendon appears normal. IMPRESSION: Arthritic changes as above most severe at the DIP joints. Dictated by: Liyah Patel M.D. on 03/06/2023 at 15:06 Approved by: Liyah Patel M.D. on 03/06/2023 at 15:07
== END ==
PROVIDERS: PCP Family Medicine; Referring Provider Family Medicine; Visit Provider Family Medicine
DX: M79.672 Pain in left foot (principal); G89.29 Other chronic pain
CPT/HCPCS: 73630

== ENCOUNTER → 2023-10-18 10:52 | Outpatient (CLI) | payer MEDICARE, OTHER, SELFPAY ==
--- NOTE | 2023-10-18 10:55 | DI.RAD.S_ITS ---
PROCEDURE: XR RIBS LT MIN 3V W CXR1V INDICATIONS: Pleurodynia TECHNIQUE: 4 views of the left ribs were acquired, along with a single view chest. COMPARISON: None. FINDINGS: Surgical changes and devices: Partially visualized ACDF. Bones and chest wall: No fractures or dislocations. No suspicious bony lesions. Overlying soft tissues appear unremarkable. Lungs and pleura: No pleural effusions or pneumothorax. Hazy opacity along the right lung base. The left lung is clear. Mediastinum: Cardiomediastinal silhouette is mildly prominent. IMPRESSION: 1. Hazy opacity within the right lung base which may be on the basis of atelectasis and/or infiltrate. 2. No rib fracture. Dictated by: Tano Sebastian M.D. on 10/18/2023 at 15:27 Approved by: Tano Sebastian M.D. on 10/18/2023 at 15:33
== END ==
PROVIDERS: PCP Family Medicine; Referring Provider Family Medicine; Visit Provider Family Medicine
DX: R07.81 Pleurodynia (principal)
CPT/HCPCS: 71101

== ENCOUNTER → 2023-10-26 09:24 | Outpatient (CLI) | payer MEDICARE, OTHER, SELFPAY ==
--- NOTE | 2023-10-26 09:26 | DI.RAD.S_ITS ---
PROCEDURE: XR CHEST 2V INDICATIONS: Other nonspecific abnormal finding of lung field TECHNIQUE: 2 views of the chest were acquired. COMPARISON: [facility], , XR CHEST 1V, 07/10/2020, 12:45. FINDINGS: Surgical changes and devices: Cervical fusion hardware. Lungs and pleura: Hazy opacities within the right lung base. The left lung is clear. No pleural effusions or pneumothorax. Mediastinum: Mediastinal contours are normal. Heart size is normal. Bones and chest wall: No suspicious bony abnormalities. Soft tissues appear unremarkable. IMPRESSION: Hazy opacities within the right lung base, likely on the basis of atelectasis. Dictated by: Tano Sebastian M.D. on 10/26/2023 at 12:56 Approved by: Tano Sebastian M.D. on 10/26/2023 at 13:00
== END ==
PROVIDERS: PCP Family Medicine; Referring Provider Family Medicine; Visit Provider Family Medicine
DX: R91.8 Other nonspecific abnormal finding of lung field (principal); Z98.1 Arthrodesis status
CPT/HCPCS: 71046

== ENCOUNTER 2024-08-09 06:33 | Day surgery (SDC) | payer MEDICARE, OTHER, SELFPAY ==
[2024-08-09 06:58] VITALS: BP 152/97; PULSE 81; RESP 22; TEMP 36; O2SAT 99
[2024-08-09] MEDS: LACTATED RINGERS 1,000 ML 42 ML IV (07:15)
--- NOTE | 2024-08-09 07:33 | P.HP_ITS ---
History of Present Illness History of Present Illness Date Patient Seen: 08/09/24 Time Patient Seen: 07:33 Chief complaint: Colonoscopy Narrative: Kennedy a 78-year-old man with hemorrhoids and rectal bleeding. See the office note for details. He thinks his last colonoscopy was maybe 7 years ago. [facility] Medical History Gout Hemolytic anemia Hyperlipidemia Parkinsons Stable angina Surgical History History of appendectomy Hx laparoscopic cholecystectomy Social History Smoking Status: Former smoker alcohol intake: never Meds Home Medications and Allergies Home Medications Medication Instructions Recorded Confirmed Type cholecalciferol (vitamin D3) 25 2,000 unit PO QDAY ##0 06/14/17 08/09/24 History mcg (1,000 unit) tablet (Vitamin D3) colchicine 0.6 mg capsule 2 tab PO PRN PRN Gout ##0 06/14/17 08/09/24 History allopurinol 300 mg tablet 300 mg PO DAILY 12/25/18 08/09/24 History atorvastatin 10 mg tablet 10 mg PO DAILY 12/25/18 08/09/24 History carbidopa 25 mg-levodopa 100 mg 2 tab PO DAILY 12/25/18 08/09/24 History tablet magnesium 1 tab PO DAILY 12/25/18 08/09/24 History ibuprofen 600 mg tablet 600 mg PO Q6H 07/16/24 08/09/24 History meloxicam 15 mg tablet 15 mg PO DAILY 07/16/24 08/09/24 History methocarbamol 500 mg tablet 500 mg PO Q8H PRN Pain (Scale 07/16/24 08/09/24 History Score 4-6) pantoprazole 40 mg tablet,delayed 40 mg PO DAILY 07/16/24 08/09/24 History release tramadol 50 mg tablet 50 mg PO DAILY 07/16/24 08/09/24 History Allergies Allergy/AdvReac Type Severity Reaction Status Date / Time No Known Drug Allergies Allergy Verified 08/09/24 06:49 Exam Vital Signs (past 8 hours): - 08/09/24 06:58 Temperature 96.8 F L Pulse Rate 81 Respiratory Rate 22 Blood Pressure 152/97 H Pulse Oximetry 99 Oxygen Delivery Method Room Air Oxygen Delivery Method Room Air Const General: No acute distress Assessment & Plan Assessment and plan (1) Hematochezia: Status: Acute Plan Colonoscopy and rubber-band ligation of internal hemorrhoids Time-Based Coding :: [TOTAL MINUTES] spent with patient and on the chart (including review of chart, obtaining history, exam, reviewing outside data, placing orders, documenting exam and treatment plan, and counseling patient) on [DATE]. PROFEE Raimann Machine Operator Document charge(s): No
[2024-08-09 07:58] VITALS: BP 93/61; PULSE 92; RESP 16; TEMP 36.6; O2SAT 95
--- NOTE | 2024-08-09 07:58 | P.OP.COLON_ITS ---
Operative Date/Time/Diagnoses Date of procedure: 08/09/24 Time of procedure: 07:58 Pre-op diagnosis: Rectal bleeding Post-op diagnosis: same Procedure & Clinicians Study performed: Colonoscopy Rubber-band ligation of internal hemorrhoids Same procedure as scheduled: Yes Surgeon: Jaime Gordon Procedure Notes Procedure in detail: Surgeon: Jaime Gordon MD Anesthesia: Christal Leon [employer]UTION [employer]SULTANT Procedure: The patient was brought to the endoscopy suite, placed in left lateral decubitus position. The patient was connected to monitoring devices. A time-out was performed. Sedation was administered. Once the patient was adequately sedated, a digital rectal exam was performed and was normal. The scope was then inserted and advanced to the cecum where the appendiceal orifice was identified and photographed. The scope was then slowly withdrawn over greater than 6 minutes. The mucosa was thoroughly inspected. No polyps were found. There were some scattered sigmoid diverticula. The scope was retroflexed in the rectum. Internal hemorrhoids were noted, largest in the right lateral location. The scope was straightened and removed. Next, rubber-band ligation was performed in the right anterior and right posterior locations. The patient was awakened and brought to recovery. Scope withdrawal time: 11 minutes Sedation time: 15 minutes EBL: 3 mL Findings: Internal hemorrhoids Post-procedure Disposition: PACU
[2024-08-09 08:03] VITALS: BP 103/72; PULSE 97; RESP 16; O2SAT 97
[2024-08-09 08:08] VITALS: BP 105/73; PULSE 92; RESP 16; O2SAT 96
[2024-08-09 08:13] VITALS: BP 117/80; PULSE 86; RESP 16; TEMP 36.6; O2SAT 95
[2024-08-09 08:29] VITALS: BP 113/78; PULSE 91; RESP 16; TEMP 36.6; O2SAT 96
== END 2024-08-09 08:31 | disposition home or self-care (01) ==
PROVIDERS: PCP Family Medicine; Referring Provider Surgery; Visit Provider Surgery
PROC: 0DJD8ZZ Inspection of Lower Intestinal Tract, Via Natural or Artificial Opening Endoscopic (ICD-10-PCS; CPT 45378; principal; 2024-08-09 07:45)
DX: K62.5 Hemorrhage of anus and rectum (principal); K57.30 Diverticulosis of large intestine without perforation or abscess without bleeding; K64.8 Other hemorrhoids; Z87.891 Personal history of nicotine dependence
CPT/HCPCS: 46221; J2704

== ENCOUNTER → 2024-09-30 08:31 | Outpatient (CLI) | payer MEDICARE, OTHER, SELFPAY ==
--- NOTE | 2024-09-30 08:35 | DI.RAD.S_ITS ---
PROCEDURE: XR LUMBAR SPINE MIN 4V INDICATIONS: BACK PAIN TECHNIQUE: 5 views of the lumbar spine were acquired, including bilateral oblique views. COMPARISON: [facility] [place], [place], XR LUMBAR SPINE WITH OBLIQUES PLUS FLEXION EXTENSION, 10/18/2022, 14:58. FINDINGS: Bones: 5 nonrib-bearing vertebrae are present. Trace levoconvex curvature of the lumbar spine. Mildly exaggerated kyphosis at the thoracolumbar junction. Mild grade 1 anterolisthesis of L4 on L5. Trace grade 1 retrolisthesis of L1 on L2. Osseous bridging is seen across the L2-3 disc space. No acute vertebral body compression fractures. Mild chronic anterior wedging deformity of the T12 vertebral body. Multilevel disc space narrowing and degenerative endplate changes. Multilevel facet hypertrophy. No suspicious bony lesions. Soft tissues: Overlying bowel gas pattern is normal. Mild aortic atherosclerotic calcifications. Oblique images: No pars defects. IMPRESSION: 1. No acute osseous abnormality. If symptoms persist or if there is continued clinical concern, cross-sectional imaging such as MRI or CT may be helpful for further evaluation. 2. Moderate to severe multilevel lumbar spondylosis. Approved by: Jamin Ariza M.D. on 09/30/2024 at 9:23
== END ==
PROVIDERS: PCP Family Medicine; Referring Provider Physical Medicine & Rehabilitation; Visit Provider Physical Medicine & Rehabilitation
DX: M47.816 Spondylosis without myelopathy or radiculopathy, lumbar region (principal); M43.16 Spondylolisthesis, lumbar region; M43.8X6 Other specified deforming dorsopathies, lumbar region; I70.0 Atherosclerosis of aorta; M54.9 Dorsalgia, unspecified; M48.00 Spinal stenosis, site unspecified; R26.81 Unsteadiness on feet
CPT/HCPCS: 72110; 99214

== ENCOUNTER 2024-10-29 09:25 | Outpatient (CLI) | payer MEDICARE, OTHER, SELFPAY ==
[2024-10-29] VITALS (8 sets, daily range): BP systolic 126–152; BP diastolic 70–96; PULSE 78–91; RESP 14–23; TEMP 36.4; O2SAT 95–98
[2024-10-29] MEDS: MIDAZOLAM 2 MG/2 ML VIAL IV (10:45)
[2024-10-29] MEDS: DEXAMETHASONE 10 MG/ML VIAL INJ (10:49)
[2024-10-29] MEDS: BETAMETHASONE 30 MG/5 ML MDV 12 MG INJ (10:49)
[2024-10-29] MEDS: BETAMETHASONE 30 MG/5 ML MDV 6 MG INJ (10:50)
--- NOTE | 2024-10-29 11:01 | P.PCN_ITS ---
Date/Time/Diagnoses Date of procedure: 10/29/24 Time of procedure: 11:01 Pre-procedure diagnosis: 1. HNP WITH RADICULAR FEATURES, 2. MULTILEVEL CENTRAL STENOSIS, Post-procedure diagnosis: same Procedure Notes Procedure: 1. FLUOROSCOPICALLY GUIDED CONTRAST CONTROLLED INTERLAMINAR EPIDURAL STEROID INJECTION - L3/4 Indications: Petar is referred by Dr. Mason for treatment of Bilateral Foraminal Stenosis L>R LE symptoms. Physician: Jason Ramirez Total Fluoroscopy time (seconds): 7 Total sedation minutes: 13 Complications: none Procedure in detail & Post-procedure care: FINDINGS Multilevel Central Spinal Stenosis with Nerve Root Compression DESCRIPTION OF PROCEDURE Fluoroscopically guided, contrast-controlled L3/4 translaminar epidural steroid injection. Following review of allergy and review of potential side effects and complications, including, but not necessarily limited to, infection, allergic reaction, local tissue breakdown, temporary as well as permanent nerve injury, paralysis, stroke and possible , the patient indicated that the patient understood and agreed to proceed. An informed consent document was signed by the patient, witnessed by a nurse, and placed in the patient's chart. Additionally, other treatment options including modalities, medications, and physical therapy were reviewed with the patient. After review of previous anaesthesic history and IV conscious sedation the patient was deemed safe to proceed with today?s procedure with IV conscious sedation as ASA class II designation. Safety time-out was performed to confirm patient ID, procedure to be performed and site of procedure. IV sedation was accomplished with a combination of 2mg of Versed was administered by the RN after DO order, titrated to patient comfort during the course of the procedure while the patient remained responsive to all verbal commands. In the prone position, following sterile prep and drape of the lumbar region, the L3/4 translaminar space was identified fluoroscopically. The skin was anesthetized via a 25-gauge, 1.5-inch needle with 1% lidocaine solution. At this point, a 22-gauge short bevel spinal needle was atraumatically introduced and advanced under fluoroscopic guidance into the region of the L3/4 translaminar space. Depth was confirmed on lateral view. Radiological data, including multiple fluoroscopic views of the lumbar spine, reveal a spinal needle at the L3/4 translaminar space. Lateral views then show placement of the needle in the epidural space. Subsequent views show contrast material flowing superiorly and inferiorly in the epidural space. No vascular or intrathecal uptake is observed. At this point, using loss of resistance technique with saline and air, the epidural space was entered. This was confirmed following negative aspiration with injection of approximately 1.5 cc of Isovue 200, showing excellent epidural flow without vascular or intrathecal uptake. At this point, 1cc of 0.25% lupillo aditya solution combined with 3cc or 10mg of dexamethasone and 12mg of betamethasone was injected without incident. The patient tolerated the procedure well without signs or symptoms of complications prior to transfer to the recovery area continued monitoring without incident. The patient was then transferred to the recovery area where they were observed for an appropriate period of time after the injection. The patient reported a VAS score of 6 prior to the procedure and a post- procedure VAS of 0. POST OP INSTRUCTIONS The patient was provided a Pain Log to continue to record their response to the target-specific procedure prior to follow-up visit with their referring physician. Additionally, specific post-injection care instructions and a contact number to our office were provided if concerns arise regarding possible complications associated with the procedure are suspected.
== END 2024-10-29 11:18 | disposition home or self-care (01) ==
LOC: RAD 09:27
PROVIDERS: PCP Family Medicine; Referring Provider Physical Medicine & Rehabilitation; Visit Provider Physical Medicine & Rehabilitation
DX: M48.061 Spinal stenosis, lumbar region without neurogenic claudication (principal); M51.16 Intervertebral disc disorders with radiculopathy, lumbar region
CPT/HCPCS: 62323; 99152; J0702; J1100; J2250